=== PATIENT | female | born 1965 | race Caucasian/White ===

== ENCOUNTER 2018-09-24 13:18 | Emergency (ER) | payer MEDICAID ==
[2018-09-24] MEDS ORDERED: BABY ASPIRIN 81 MG CHEW PO ONE (13:29)
--- NOTE | 2018-09-24 13:36 | ERPHSYRPT ---
- History of Present Illness Time Seen by Provider: 09/24/18 13:31 Historian: patient Exam Limitations: no limitations Physician History: 53-year-old white female with history of mitral valve prolapse, seizures, diabetes mellitus type 2, high blood pressure Patient arrives with complaint of substernal chest pain sharp in character shooting, lasting less than a minute, but intermittent associated with shortness of breath nausea and dizziness. Patient states she woke up with the above complaints. Past medical history includes mitral valve prolapse, seizures, diabetes, hypercholesterolemia, high blood pressure. Past surgical history includes right forearm and right knee surgery. Social history patient denies tobacco alcohol or illicit drug use Timing/Duration: today (9 AM today) Activities at Onset: sleep Quality: sharpness (sharp shooting pains lasting less than a minute but intermittent) Location: substernal Chest Pain Radiation: no radiation Severity of Pain-Max: moderate Severity of Pain-Current: mild Modifying Factors: Improves With: nothing Associated Symptoms: nausea, palpitations, shortness of breath, No vomiting, No heartburn, No abdominal pain, No cough, No hurts to breathe, No diaphoresis, No chills, No fever, No fatigue, No weakness, No swelling/lump in chest, No syncope , No rash, No headache, No dizziness, No edema, No back pain Prior Chest Pain/Cardiac Workup: no prior chest pain Nitro Today/Relief: no nitro taken today Aspirin Treatment Today: 81 mg x 4, provided by ED Allergies/Adverse Reactions: codeine Allergy (Severe, Verified 09/24/18 13:32) itch levofloxacin Allergy (Verified 09/24/18 13:32) Swelling naproxen Allergy (Verified 09/24/18 13:32) Swelling Home Medications: Atorvastatin Calcium [Lipitor 20MG Tablet] 20 mg PO BID 09/24/18 [History] Levetiracetam [Keppra] 1,000 mg PO BID 09/24/18 [History] Metoprolol Succinate 25 mg PO DAILY 09/24/18 [History] Phenytoin Sod Extended 100 mg* [Dilantin 100 MG] 100 mg PO BID 09/24/18 [ History] - Review of Systems Constitutional: No Fever, No Chills Eyes: No Symptoms Ears, Nose, & Throat: No Symptoms Respiratory: Dyspnea, No Cough Cardiac: Chest Pain, No Edema, No Palpitations, No Syncope, No Orthopnea Abdominal/Gastrointestinal: No Abdominal Pain, No Nausea, No Vomiting, No Diarrhea Genitourinary Symptoms: No Dysuria Musculoskeletal: No Symptoms, No Back Pain, No Neck Pain Skin: No Rash Neurological: No Dizziness, No Focal Weakness, No Sensory Changes Psychological: No Symptoms Endocrine: No Symptoms All Other Systems: Reviewed and Negative - Past Medical History Pertinent Past Medical History: Yes Neurological History: Seizures Cardiac History: High Cholesterol, Hypertension, Other (mitral valve prolapse) Endocrine Medical History: Diabetes Type II - Past Surgical History Past Surgical History: Yes Other Surgical History: right forearm surgery, right knee surgery - Nursing Vital Signs Nursing Vital Signs: Initial Vital Signs Temperature 98.6 F 09/24/18 13:22 Pulse Rate 86 09/24/18 13:22 Respiratory Rate 16 09/24/18 13:22 Blood Pressure 170/101 09/24/18 13:22 O2 Sat by Pulse Oximetry 100 09/24/18 13:22 Pain Scale Pain Intensity 4 - Physical Exam General Appearance: mild distress, alert, anxiety Eye Exam: PERRL/EOMI, eyes nml inspection Ears, Nose, Throat Exam: normal ENT inspection, moist mucous membranes Neck Exam: normal inspection (Lanoxin she says she), non-tender, supple, full range of motion Respiratory Exam: normal breath sounds, lungs clear, No respiratory distress Cardiovascular Exam: regular rate/rhythm, normal heart sounds, capillary refill <2 sec Gastrointestinal/Abdomen Exam: soft, No tenderness, No mass Back Exam: normal inspection, No CVA tenderness, No vertebral tenderness Extremity Exam: normal inspection, normal range of motion Neurologic Exam: alert, oriented x 3, cooperative, cvicu rn II-XII nml as tested, normal mood/affect, sensation nml, No motor deficits Skin Exam: normal color, warm, dry SpO2 Interpretation: normal (97%), borderline oxygenation - Course Nursing assessment & vital signs reviewed: Yes EKG Interpreted by Me: RATE (95 bpm), Sinus Rhythm, Other (EKG: Sinus rhythm days for a little axis, no acute ST or T wave changes, normal EKG) - Radiology Exams Chest X-ray Interpretation: Discussed w/ radiologist (chest x-ray: Normal heart lungs , and bony thorax), Teleradiologist Report ( or I) - CT Exams Chest CT Interpretation: Discussed w/radiologist (CTA chest: Impression: Negative pulmonary embolism. No acute cardiopulmonary abnormalities.) Ordered Tests: Active Orders 24 hr Category Date Time Status Cab Worker STAT Care 09/24/18 13:29 Active EKG-ER Only STAT Care 09/24/18 13:29 Active IV Insertion STAT Care 09/24/18 13:29 Active Pulse Oximetry (ED) STAT Care 09/24/18 13:29 Active CHEST 1 VIEW (PORTABLE) Stat Exams 09/24/18 13:29 Completed CHEST WITH CONTRAST [CT] Stat Exams 09/24/18 14:46 Completed AMYLASE Stat Lab 09/24/18 13:39 Completed CBC W DIFF Stat Lab 09/24/18 13:39 Completed CMP Stat Lab 09/24/18 13:39 Completed D-DIMER QUANTITATION Stat Lab 09/24/18 13:39 Completed HCG QUALITATIVE,SERUM Stat Lab 09/24/18 13:39 Completed LIPASE Stat Lab 09/24/18 13:39 Completed PROTIME WITH INR Stat Lab 09/24/18 13:39 Completed PTT Stat Lab 09/24/18 13:39 Completed TROPONIN Q3H Lab 09/24/18 13:39 Completed TROPONIN Q3H Lab 09/24/18 16:30 Completed TROPONIN Q3H Lab 09/24/18 19:30 Ordered TROPONIN Q3H Lab 09/24/18 22:30 Ordered TROPONIN Q3H Lab 09/25/18 01:30 Ordered Medication Summary Discontinued Medications Generic Name Dose Route Start Last Admin Trade Name Freq PRN Reason Stop Dose Admin Aspirin 324 mg 09/24/18 13:29 09/24/18 13:38 Baby Aspirin 81 Mg Chew PO 09/24/18 13:30 324 mg STAT ONE Administration Aspirin Confirm 09/24/18 13:38 Baby Aspirin 81 Mg Chew Administered 09/24/18 13:39 Dose 324 mg .ROUTE .STK-MED ONE Morphine Sulfate 2 mg 09/24/18 14:44 09/24/18 15:00 Morphine Sulfate 2 Mg Inj IV 09/24/18 14:45 2 mg STAT ONE Administration Morphine Sulfate Confirm 09/24/18 14:54 Morphine Sulfate 2 Mg Inj Administered 09/24/18 14:55 Dose 2 mg .ROUTE .STK-MED ONE Ondansetron HCl 4 mg 09/24/18 14:44 09/24/18 15:00 Zofran 4 Mg/2 Ml Vial IV 09/24/18 14:45 4 mg STAT ONE Administration Ondansetron HCl Confirm 09/24/18 14:54 Zofran 4 Mg/2 Ml Vial Administered 09/24/18 14:55 Dose 4 mg .ROUTE .STK-MED ONE Lab/Rad Data: Laboratory Result Diagrams 09/24/18 13:39 09/24/18 13:39 Laboratory Results 09/24/18 09/24/18 09/24/18 Range/Units 16:30 13:39 13:39 WBC (4.0-10.5) K/mm3 RBC (4.1-5.4) M/mm3 Hgb (12.0-16.0) gm/dl Hct (35-47) % MCV (78-100) fl MCH (26-32) pg MCHC (32-36) g/dl RDW (11.5-14.0) % Plt Count (150-450) K/mm3 MPV (6-9.5) fl Gran % (36.0-66.0) % Eos # (Auto) (0-0.5) Absolute Lymphs (auto) (1.0-4.6) Absolute Monos (auto) (0.0-1.3) Lymphocytes % (24.0-44.0) % Monocytes % (0.0-12.0) % Eosinophils % (0.00-5.0) % Basophils % (0.0-0.4) % Absolute Granulocytes (1.4-6.9) Basophils # (0-0.4) PT (9.95-12.35) SECONDS INR (0.8-3.0) APTT (25.3-37.0) SECONDS D-Dimer (215-500) ng/mL Sodium (137-145) mmol/L Potassium (3.5-5.1) mmol/L Chloride (98-107) mmol/L Carbon Dioxide (22-30) mmol/L Anion Gap (5-15) MEQ/L BUN (7-17) mg/dL Creatinine (0.52-1.04) mg/dL Estimated GFR ML/MIN Glucose (74-106) mg/dL Calcium (8.4-10.2) mg/dL Total Bilirubin (0.2-1.3) mg/dL AST (14-36) U/L ALT (0-35) U/L Alkaline Phosphatase (38-126) U/L Troponin I < 0.012 < 0.012 (0.000-0.034) ng/mL Serum Total Protein (6.3-8.2) g/dL Albumin (3.5-5.0) g/dL Amylase (30-110) U/L Lipase (23-300) U/L Serum , Qual NEGATIVE (Negative) 09/24/18 09/24/18 09/24/18 Range/Units 13:39 13:39 13:39 WBC 6.8 (4.0-10.5) K/mm3 RBC 4.77 (4.1-5.4) M/mm3 Hgb 11.5 L (12.0-16.0) gm/dl Hct 37.2 (35-47) % MCV 78.0 (78-100) fl MCH 24.1 L (26-32) pg MCHC 30.9 L (32-36) g/dl RDW 16.8 H (11.5-14.0) % Plt Count 339 (150-450) K/mm3 MPV 9.5 (6-9.5) fl Gran % 53.7 (36.0-66.0) % Eos # (Auto) 0.20 (0-0.5) Absolute Lymphs (auto) 1.90 (1.0-4.6) Absolute Monos (auto) 1.03 (0.0-1.3) Lymphocytes % 27.9 (24.0-44.0) % Monocytes % 15.1 H (0.0-12.0) % Eosinophils % 2.9 (0.00-5.0) % Basophils % 0.4 (0.0-0.4) % Absolute Granulocytes 3.65 (1.4-6.9) Basophils # 0.03 (0-0.4) PT 11.0 (9.95-12.35) SECONDS INR 0.95 (0.8-3.0) APTT 25.8 (25.3-37.0) SECONDS D-Dimer 531 H* (215-500) ng/mL Sodium 139 (137-145) mmol/L Potassium 4.2 (3.5-5.1) mmol/L Chloride 103 (98-107) mmol/L Carbon Dioxide 25 (22-30) mmol/L Anion Gap 15.3 H (5-15) MEQ/L BUN 10 (7-17) mg/dL Creatinine 0.60 (0.52-1.04) mg/dL Estimated GFR > 60.0 ML/MIN Glucose 114 H (74-106) mg/dL Calcium 10.3 H (8.4-10.2) mg/dL Total Bilirubin 0.40 (0.2-1.3) mg/dL AST 20 (14-36) U/L ALT 14 (0-35) U/L Alkaline Phosphatase 66 (38-126) U/L Troponin I (0.000-0.034) ng/mL Serum Total Protein 8.2 (6.3-8.2) g/dL Albumin 4.5 (3.5-5.0) g/dL Amylase 94 (30-110) U/L Lipase 123 (23-300) U/L Serum , Qual (Negative) - Progress Progress: improved Air Movement: fair Progress Note: 09/24/18 17:17 Patient now feeling better pain free Patient's chest x-ray normal heart lungs and bony thorax . Patient's EKG sinus rhythm 95 beats per minute normal axis no acute ST or T wave changes normal EKG. CT chest obtained secondary to chest pain and elevated d-dimer: Negative pulmonary embolus no acute cardiopulmonary abnormalities Patient's troponins were negative x2 will discharge patient Impression chest pain noncardiac - Departure Departure Disposition: Home Clinical Impression: Non-cardiac chest pain Condition: Fair Critical Care Time: No Referrals: DOCTOR,NO FAMILY [Primary Care Provider] - Additional Instructions: Return home rest. Tylenol every 4 hours as needed for pain. Followup with your family (list). Return for acute distress or for severe symptoms.
[2018-09-24] MEDS ORDERED: BABY ASPIRIN 81 MG CHEW ONE (13:38)
[2018-09-24 13:43] LABS: BASOPHIL % 0.4 % (0.0-0.4); Basophil (Absolute #) 0.03 (0-0.4); Eosinophil % 2.9 % (0.00-5.0); Granulocyte Absolute (ANC) 3.65 (1.4-6.9); Granulocytes % 53.7 % (36.0-66.0); Hematocrit 37.2 % (35-47); Hemoglobin 11.5 gm/dl (12.0-16.0); Lymphocytes % 27.9 % (24.0-44.0); Mean Corpuscular Hemoglobin 24.1 pg (26-32); Mean Corpuscular Hgb Concent. 30.9 g/dl (32-36); Mean Platelet Volume 9.5 fl (6-9.5); Monocyte (Absolute #) 1.03 (0.0-1.3); Monocytes % 15.1 % (0.0-12.0); Platelet Count 339 K/mm3 (150-450); Red Blood Count 4.77 M/mm3 (4.1-5.4); Red Cell Distribution Width 16.8 % (11.5-14.0); White Blood Count 6.8 K/mm3 (4.0-10.5)
[2018-09-24 13:49] LABS: INR 0.95 (0.8-3.0)
[2018-09-24 13:52] LABS: PTT 25.8 SECONDS (25.3-37.0)
[2018-09-24 13:54] LABS: ALBUMIN 4.5 g/dL (3.5-5.0); ALKALINE PHOSPHATASE 66 U/L (38-126); AMYLASE 94 U/L (30-110); ANION GAP 15.3 MEQ/L (5-15); BLOOD UREA NITROGEN 10 mg/dL (7-17); CHLORIDE 103 mmol/L (98-107); Calcium 10.3 mg/dL (8.4-10.2); Carbon Dioxide 25 mmol/L (22-30); Glucose 114 mg/dL (74-106); LIPASE 123 U/L (23-300); Potassium 4.2 mmol/L (3.5-5.1); SGOT/AST 20 U/L (14-36); SGPT/ALT 14 U/L (0-35); SODIUM 139 mmol/L (137-145); Total Protein 8.2 g/dL (6.3-8.2)
--- NOTE | 2018-09-24 13:57 | XRAY ---
Indication: Chest pain. Comparison: None Portable chest demonstrates normal heart, lungs, and bony thorax.
[2018-09-24] MEDS ORDERED: MORPHINE SULFATE 2 MG INJ IV ONE (14:44)
[2018-09-24] MEDS ORDERED: Zofran 4 MG/2 ML VIAL IV ONE (14:44)
[2018-09-24] MEDS ORDERED: MORPHINE SULFATE 2 MG INJ ONE (14:54)
[2018-09-24] MEDS ORDERED: Zofran 4 MG/2 ML VIAL ONE (14:54)
--- NOTE | 2018-09-24 16:32 | XRAY ---
Indication: Chest pain, short of breath, dizziness, and nausea. Elevated d-dimer. Multiple contiguous axial images obtained through the chest using 80 cc Isovue-370 contrast and PE protocol. Comparison: None There is good opacification of the pulmonary arteries to include the lobar and segmental branches. No filling defect or pulmonary embolus. Heart is not enlarged. Aorta is normal in course and caliber. No pathologic mediastinal/hilar lymphadenopathy. Lungs demonstrate minimal bilateral dependent atelectasis and minimal medial right lower lobe peripheral fibrosis/scarring. No suspicious pulmonary mass, infiltrate, or effusion. Bony thorax intact with minimal degenerative changes throughout the spine. Limited upper abdomen including adrenal glands unremarkable. Impression: Negative pulmonary embolus. No acute cardiopulmonary abnormalities. CTDI 22.44
[2018-09-24 17:43] VITALS: BP 133/89; PULSE 89; O2SAT 97
== END 2018-09-24 17:42 | disposition home or self-care (01) ==
LOC: ED 13:18
DX: R07.89 Other chest pain (principal); E11.9 Type 2 diabetes mellitus without complications; I10 Essential (primary) hypertension; R56.9 Unspecified convulsions; E78.00 Pure hypercholesterolemia, unspecified; Z79.899 Other long term (current) drug therapy
CPT/HCPCS: 36000; 36415; 71045; 71260; 80053; 81025; 82150; 83690; 84484; 85025; 85379; 85610; 85730; 93005; 93041; 96374; 96375; 99284; J2270; J2405; A9270-GY

== ENCOUNTER 2018-11-12 13:40 | Emergency (ER) | payer MEDICAID ==
[2018-11-12 14:07] VITALS: PULSE 94; O2SAT 98
[2018-11-12] MEDS ORDERED: MOTRIN 400 MG ONE (14:37)
[2018-11-12] MEDS: MOTRIN 400 MG PO ONE ×2 (14:37→14:55)
--- NOTE | 2018-11-12 14:39 | ERPHSYRPT ---
- History of Present Illness Time Seen by Provider: 11/12/18 14:25 Source: patient Exam Limitations: no limitations Patient Subjective Stated Complaint: Pain in left foot and lower part of calf, pins and needles, went to Dr. Meyers 3 weeks ago and lab work was purnima for gout, sees Dr. Meyers on 11/22/2018 Triage Nursing Assessment: Wheeled in by wheelchair, hypertensive, unable to flex left foot due to pain, no heat in leg, pulses normal, rates pain 12/31, skin N/W/D, pain began yesterday Physician History: Pt started c/o pain in her left posterior, distal, lower leg, heel area since yesterday, denies swelling, any injury or other complaints, no chest pain, cough , SOB< fever, nausea. Method of Injury: unknown Occurred: yesterday Quality: constant, intermittent Severity of Pain-Max: moderate Severity of Pain-Current: moderate Lower Extremities Pain: heel: left Modifying Factors: Improves With: immobilization, movement Associated Symptoms: none Allergies/Adverse Reactions: codeine Allergy (Severe, Verified 11/12/18 15:10) itch levofloxacin Allergy (Verified 11/12/18 15:10) Swelling naproxen Allergy (Verified 11/12/18 15:10) Swelling Home Medications: Atorvastatin Calcium [Lipitor 20MG Tablet] 20 mg PO BID 09/24/18 [History] Levetiracetam [Keppra] 1,000 mg PO BID 09/24/18 [History] Metoprolol Succinate 25 mg PO DAILY 09/24/18 [History] Phenytoin Sod Extended 100 mg* [Dilantin 100 MG] 100 mg PO BID 09/24/18 [ History] Cyclobenzaprine HCl [Flexeril] 5 mg PO DAILY 11/12/18 [History] Gabapentin [Neurontin] 300 mg PO DAILY 11/12/18 [History] Levothyroxine Sodium 100 Mcg [Synthroid 100 Mcg] 1 tab PO DAILY 11/12/18 [ History] Hx Tetanus, Diphtheria Vaccination/Date Given: No Hx Influenza Vaccination/Date Given: No Hx Pneumococcal Vaccination/Date Given: No - Review of Systems Constitutional: No Symptoms Ears, Nose, & Throat: No Symptoms Respiratory: No Symptoms Cardiac: No Symptoms Abdominal/Gastrointestinal: No Symptoms Genitourinary Symptoms: No Symptoms Musculoskeletal: Other (left lower leg and heel pain, no swelling.) Skin: No Symptoms Neurological: No Symptoms All Other Systems: Reviewed and Negative - Past Medical History Pertinent Past Medical History: Yes Neurological History: Seizures ENT History: No Pertinent History Cardiac History: High Cholesterol, Hypertension, Other Respiratory History: No Pertinent History Endocrine Medical History: Diabetes Type II Musculoskeletal History: No Pertinent History GI Medical History: No Pertinent History History: No Pertinent History Psycho-Social History: Anxiety Female Reproductive Disorders: No Pertinent History - Past Surgical History Past Surgical History: Yes Other Surgical History: right forearm surgery, right knee surgery - Social History Smoking Status: Former smoker Exposure to second hand smoke: Yes Drug Use: none Patient Lives Alone: No - Female History Hx Now: No - Nursing Vital Signs Nursing Vital Signs: Initial Vital Signs Temperature 98.0 F 11/12/18 13:57 Pulse Rate 94 H 11/12/18 13:57 Blood Pressure 151/86 11/12/18 13:57 O2 Sat by Pulse Oximetry 98 11/12/18 13:57 Pain Scale Pain Intensity [] 9 Pain Intensity 9 - Physical Exam General Appearance: no apparent distress Eyes, Ears, Nose, Throat Exam: normal ENT inspection Neck Exam: normal inspection, non-tender Cardiovascular/Respiratory Exam: chest non-tender, normal breath sounds, regular rate/rhythm, heart sounds normal Gastrointestinal/Abdominal Exam: non-tender, soft, No no organomegaly, No tenderness Back Exam: normal inspection, No CVA tenderness, No vertebral tenderness Foot Exam: left foot: soft tissue tenderness (left proximal Achilles area tender , no dent, or discoloration, no edema, or other skin changes, painful dorsiflexion, normal distal circulation and sensation of the foot and toes.) Neuro/Tendon Exam: normal sensation, normal motor functions Mental Status Exam: alert, oriented x 3, cooperative Skin Exam: normal color, warm, dry, No rash, No petechiae, No diaphoresis SpO2 Interpretation: normal SpO2: 98 O2 Delivery: Room Air - Course Nursing assessment & vital signs reviewed: Yes - Radiology Exams Left Foot X-ray Interpretation: Reviewed by me, Other (small heel spur) Left Lower Leg X-ray Interpretation: Reviewed by me, Negative Ordered Tests: Active Orders 24 hr Category Date Time Status Crutches STAT Care 11/12/18 15:28 Ordered Splint STAT Care 11/12/18 15:27 Ordered FOOT (MINIMUM 3 VIEWS) Stat Exams 11/12/18 14:32 Completed LOWER LEG Stat Exams 11/12/18 14:33 Completed CBC W DIFF Stat Lab 11/12/18 14:50 Completed CMP Stat Lab 11/12/18 14:50 Completed D-DIMER QUANTITATION Stat Lab 11/12/18 14:50 Completed Medication Summary Discontinued Medications Generic Name Dose Route Start Last Admin Trade Name Fremarlyn PRN Reason Stop Dose Admin Ibuprofen 400 mg 11/12/18 14:33 11/12/18 14:55 Motrin 400 Mg PO 11/12/18 14:34 Not Given STAT ONE Ibuprofen Confirm 11/12/18 14:37 Motrin 400 Mg Administered 11/12/18 14:38 Dose 400 mg .ROUTE .STK-MED ONE Lab/Rad Data: Laboratory Result Diagrams 11/12/18 14:50 11/12/18 14:50 Laboratory Results 11/12/18 11/12/18 11/12/18 Range/Units 14:50 14:50 14:50 WBC 6.3 (4.0-10.5) K/mm3 RBC 4.67 (4.1-5.4) M/mm3 Hgb 11.8 L (12.0-16.0) gm/dl Hct 37.9 (35-47) % MCV 81.2 (78-100) fl MCH 25.2 L (26-32) pg MCHC 31.1 L (32-36) g/dl RDW 17.6 H (11.5-14.0) % Plt Count 294 (150-450) K/mm3 MPV 9.7 H (6-9.5) fl Gran % 61.2 (36.0-66.0) % Eos # (Auto) 0.30 (0-0.5) Absolute Lymphs (auto) 1.27 (1.0-4.6) Absolute Monos (auto) 0.85 (0.0-1.3) Lymphocytes % 20.2 L (24.0-44.0) % Monocytes % 13.5 H (0.0-12.0) % Eosinophils % 4.8 (0.00-5.0) % Basophils % 0.3 (0.0-0.4) % Absolute Granulocytes 3.84 (1.4-6.9) Basophils # 0.02 (0-0.4) D-Dimer 409 (215-500) ng/mL Sodium 140 (137-145) mmol/L Potassium 4.1 (3.5-5.1) mmol/L Chloride 106 (98-107) mmol/L Carbon Dioxide 25 (22-30) mmol/L Anion Gap 13.1 (5-15) MEQ/L BUN 13 (7-17) mg/dL Creatinine 0.86 (0.52-1.04) mg/dL Estimated GFR > 60.0 ML/MIN Glucose 124 H (74-106) mg/dL Calcium 9.4 (8.4-10.2) mg/dL Total Bilirubin 0.30 (0.2-1.3) mg/dL AST 19 (14-36) U/L ALT 17 (0-35) U/L Alkaline Phosphatase 67 (38-126) U/L Serum Total Protein 7.5 (6.3-8.2) g/dL Albumin 4.1 (3.5-5.0) g/dL - Progress Progress: improved Progress Note: 11/12/18 15:25 We reviewed her labs and X ray results, discussed with her, she was given Tylenol, and Postop shoe, discharged to rest with elevated leg x 2-3 days, apply ice or cold compresses to painful area, and follow up with her physician in 2-3 days. Counseled pt/family regarding: lab results, diagnosis, need for follow-up, rad results - Departure Departure Disposition: Home Clinical Impression: Achilles bursitis of left lower extremity Condition: Stable Critical Care Time: No Referrals: BHAKTI MEYERS DO [Primary Care Provider] - Instructions: Bursitis (DC), Heel Spurs (DC) Additional Instructions: Rest x 2-3 days with elevated leg, apply ice or cold compresses to painful area , and follow up with your physician in 2-3 days, return if severe pain, swelling , discoloration, coldness of the toes! Forms: Work/School Release Form Prescriptions: Tramadol HCl 50 mg [Ultram 50 mg] 50 mg PO Q6H PRN #10 tablet PRN Reason: Pain
[2018-11-12 14:59] LABS: BASOPHIL % 0.3 % (0.0-0.4); Basophil (Absolute #) 0.02 (0-0.4); Eosinophil % 4.8 % (0.00-5.0); Granulocyte Absolute (ANC) 3.84 (1.4-6.9); Granulocytes % 61.2 % (36.0-66.0); Hematocrit 37.9 % (35-47); Hemoglobin 11.8 gm/dl (12.0-16.0); Lymphocyte (Absolute #) 1.27 (1.0-4.6); Lymphocytes % 20.2 % (24.0-44.0); Mean Cell Volume 81.2 fl (78-100); Mean Corpuscular Hgb Concent. 31.1 g/dl (32-36); Mean Platelet Volume 9.7 fl (6-9.5); Monocyte (Absolute #) 0.85 (0.0-1.3); Monocytes % 13.5 % (0.0-12.0); Platelet Count 294 K/mm3 (150-450); Red Blood Count 4.67 M/mm3 (4.1-5.4); Red Cell Distribution Width 17.6 % (11.5-14.0); White Blood Count 6.3 K/mm3 (4.0-10.5)
--- NOTE | 2018-11-12 15:03 | XRAY ---
Exam: 2 views of the left lower leg from 11/12/2018. Indication: 53-year-old female with diabetic neuropathy, left ankle and foot reveal oblique being stuck with pins and needles. Findings: 2 AP images and a lateral image of the left lower leg were obtained. I see no acute fracture or other focal bone lesion. Both the left ankle mortise and left knee joint appear unremarkable. The soft tissues of the left lower leg appear unremarkable. Impression: 1. No significant bone or soft tissue abnormality is seen within the right lower leg.
--- NOTE | 2018-11-12 15:04 | XRAY ---
Exam: 3 views of the left foot from 11/12/2018. Comparison: None. Indication: 53-year-old female with diabetic neuropathy, left foot and ankle feels like being stuck with "pins and needles". Findings: AP, oblique, and lateral radiographs of the left foot were obtained. I see no acute fracture or dislocation. No periosteal reaction or callus is seen. The tarsals align correctly with the metatarsals on the AP and oblique images. Mild posterior left calcaneal spurring/enthesophyte is seen. No radiopaque soft tissue foreign body is seen. The remainder of the joint spaces appears unremarkable. Impression: 1. No significant bone or joint abnormality of the left foot is seen. 2. Mild posterior calcaneal spur/enthesophyte is seen on the lateral image.
[2018-11-12 15:13] LABS: ALBUMIN 4.1 g/dL (3.5-5.0); ALKALINE PHOSPHATASE 67 U/L (38-126); ANION GAP 13.1 MEQ/L (5-15); BLOOD UREA NITROGEN 13 mg/dL (7-17); CHLORIDE 106 mmol/L (98-107); Calcium 9.4 mg/dL (8.4-10.2); Carbon Dioxide 25 mmol/L (22-30); Creatinine 1 0.86 mg/dL (0.52-1.04); Glucose 124 mg/dL (74-106); Potassium 4.1 mmol/L (3.5-5.1); SGOT/AST 19 U/L (14-36); SGPT/ALT 17 U/L (0-35); SODIUM 140 mmol/L (137-145); Total Protein 7.5 g/dL (6.3-8.2)
[2018-11-12 15:14] VITALS: BP 134/92
[2018-11-12 15:18] LABS: Mean Corpuscular Hemoglobin 25.2 pg (26-32)
== END 2018-11-12 16:00 | disposition home or self-care (01) ==
LOC: ED 13:40
DX: M76.62 Achilles tendinitis, left leg (principal)
CPT/HCPCS: 36415; 73590; 73630; 80053; 85025; 85379; 99284; A9270-GY

== ENCOUNTER 2019-07-14 14:09 | Emergency (ER) | payer MEDICAID ==
[2019-07-14 15:27] LABS: Absolute Neutrophil Ct (ANC) 3.59 (1.4-6.9); BASOPHIL % 0.5 % (0.0-0.4); Basophil (Absolute #) 0.03 (0-0.4); Eosinophil % 4.5 % (0.00-5.0); Eosinophil (Absolute #) 0.28 (0-0.5); Hematocrit 39.4 % (35-47); Hemoglobin 12.5 gm/dl (12.0-16.0); Lymphocyte (Absolute #) 1.63 (1.0-4.6); Mean Cell Volume 83.8 fl (78-100); Mean Corpuscular Hemoglobin 26.6 pg (26-32); Mean Corpuscular Hgb Concent. 31.7 g/dl (32-36); Mean Platelet Volume 9.7 fl (7.5-11.0); Monocyte (Absolute #) 0.75 (0.0-1.3); Monocytes % 11.9 % (0.0-12.0); Neutrophil % 57.1 % (36.0-66.0); Platelet Count 297 K/mm3 (150-450); Red Cell Distribution Width 15.8 % (11.5-14.0); White Blood Count 6.3 K/mm3 (4.0-10.5)
[2019-07-14] MEDS ORDERED: Sodium Chloride 0.9% 1000 ML 1,000 ML ONE (15:28)
[2019-07-14] MEDS ORDERED: Sodium Chloride 0.9% 1000 ML 1,000 ML IV SCH (15:30)
[2019-07-14 15:38] LABS: ALBUMIN 4.4 g/dL (3.5-5.0); ALKALINE PHOSPHATASE 74 U/L (38-126); ANION GAP 12.9 MEQ/L (5-15); BLOOD UREA NITROGEN 8 mg/dL (7-17); CHLORIDE 106 mmol/L (98-107); Calcium 9.8 mg/dL (8.4-10.2); Carbon Dioxide 24 mmol/L (22-30); Creatinine 1 0.53 mg/dL (0.52-1.04); Glucose 137 mg/dL (74-106); Potassium 3.8 mmol/L (3.5-5.1); SGOT/AST 20 U/L (14-36); SGPT/ALT 13 U/L (0-35); SODIUM 139 mmol/L (137-145); Total Protein 8.1 g/dL (6.3-8.2)
[2019-07-14 15:41] LABS: Appearance CLEAR (CLEAR); Bacteria PACKED /HPF (NEGATIVE); Bilirubin NEGATIVE (NEGATIVE); Blood NEGATIVE Ery/ul (0-5); Epithelial Cells RARE /HPF (FEW); Glucose NEGATIVE (NEGATIVE); Ketones NEGATIVE (NEGATIVE); Leukocyte Esterase NEGATIVE (NEGATIVE); Mucus SLIGHT /HPF (NEGATIVE); Nitrite NEGATIVE (NEGATIVE); Protein,Urine Dip NEGATIVE (Negative); RBC 0-2 /HPF (0-2); Specific Gravity 1.004 (1.005-1.025); Urobilinogen NEGATIVE mg/dL (0-1)
--- NOTE | 2019-07-14 16:16 | XRAY ---
Indication: Fever, cough, short of breath. Comparison: September 24, 2018. Portable chest again demonstrates normal heart, lungs, and bony thorax.
[2019-07-14 16:37] LABS: INFLUENZA A NEGATIVE (NEGATIVE); INFLUENZA B NEGATIVE (NEGATIVE); RESPIRATORY SYNCTIAL VIRUS NEGATIVE (Negative)
[2019-07-14 19:01] VITALS: O2SAT 97
--- NOTE | 2019-07-14 19:13 | ERPHSYRPT ---
- History of Present Illness Time Seen by Provider: 07/14/19 15:20 Patient Subjective Stated Complaint: pt reports last evening she began feeling ill. states this morning she started with a fever, body aches, non productive cough, sore throat, and dizziness. pt reports she feels short of breath when she is up moving around.pt reports she also feels pressure to the center of the chest. Triage Nursing Assessment: pt is aox3, pupils perrl, afebrile, resps easy and non labored, pt lung sounds are clear throughout all xie, radial pulses strong and equal, cap refill < 3 seconds, pt appears pale, skin warm dry. pt short of breath after ambulating short distance to treatment room. Physician History: Is a 53-year-old white female who presents with a cough. She started with a sore throat yesterday has had some dizziness the cough is nonproductive. 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 Her fever was 99.8 and was 99.1 at home mitral valve problems diabetes hypertension high cholesterol neuropathy. Timing/Duration: yesterday Cough Quality/Degree: dry cough Possible Cause: no prior episodes Modifying Factors: Improves With: nothing Associated Symptoms: fever, cough, dizziness, sore throat Allergies/Adverse Reactions: codeine Allergy (Severe, Verified 07/14/19 15:14) itch levofloxacin Allergy (Verified 07/14/19 15:14) Swelling naproxen Allergy (Verified 07/14/19 15:14) Swelling Home Medications: Levetiracetam [Keppra] 1,000 mg PO BID 09/24/18 [History] Phenytoin Sod Extended 100 mg* [Dilantin 100 MG] 100 mg PO BID 09/24/18 [ History] Gabapentin [Neurontin] 300 mg PO DAILY 11/12/18 [History] Liraglutide [Victoza 2-Vincent] 1.2 mg SQ DAILY 07/14/19 [History] Hx Tetanus, Diphtheria Vaccination/Date Given: Yes Hx Influenza Vaccination/Date Given: No Hx Pneumococcal Vaccination/Date Given: No Immunizations Up to Date: Yes Travel Risk - International Travel Have you traveled outside of the country in past 3 weeks: No Have you or anyone close to you been diagnosed with or: No Do your reside in a community with a known COVID-19 case?: No - Coronavirus Screening Has patient experienced Coronavirus symptoms: No Date of fever onset:: 07/14/19 Date of respiratory symptoms onset:: 07/14/19 - Review of Systems Constitutional: Fever, No Chills Eyes: No Symptoms Ears, Nose, & Throat: No Symptoms Respiratory: Cough, No Dyspnea Cardiac: No Chest Pain, No Edema, No Syncope Abdominal/Gastrointestinal: No Abdominal Pain, No Nausea, No Vomiting, No Diarrhea Genitourinary Symptoms: No Dysuria Musculoskeletal: No Back Pain, No Neck Pain Skin: No Rash Neurological: No Dizziness, No Focal Weakness, No Sensory Changes Psychological: No Symptoms Endocrine: No Symptoms All Other Systems: Reviewed and Negative - Past Medical History Pertinent Past Medical History: Yes Neurological History: Seizures ENT History: No Pertinent History Cardiac History: High Cholesterol, Hypertension, Other Respiratory History: No Pertinent History Endocrine Medical History: Diabetes Type II Musculoskeletal History: No Pertinent History GI Medical History: No Pertinent History History: No Pertinent History Psycho-Social History: Anxiety Female Reproductive Disorders: No Pertinent History - Past Surgical History Past Surgical History: Yes Other Surgical History: right forearm surgery, right knee surgery - Social History Smoking Status: Former smoker Exposure to second hand smoke: Yes Drug Use: none Patient Lives Alone: No - Nursing Vital Signs Nursing Vital Signs: Initial Vital Signs Temperature 99.8 F 07/14/19 15:00 Pulse Rate 81 07/14/19 15:00 Respiratory Rate 20 07/14/19 15:00 Blood Pressure 161/96 07/14/19 15:00 O2 Sat by Pulse Oximetry 98 07/14/19 15:00 Pain Scale Pain Intensity 2 - Physical Exam General Appearance: moderate distress, alert Eye Exam: PERRL/EOMI, eyes nml inspection Ears, Nose, Throat Exam: normal ENT inspection, TMs normal, pharynx normal, moist mucous membranes Neck Exam: normal inspection, non-tender, supple, full range of motion Respiratory Exam: normal breath sounds, lungs clear, No respiratory distress Cardiovascular Exam: regular rate/rhythm, normal heart sounds Gastrointestinal/Abdomen Exam: soft, No tenderness Back Exam: normal inspection, No CVA tenderness, No vertebral tenderness Extremity Exam: normal inspection, normal range of motion Neurologic Exam: alert, oriented x 3, cooperative, normal mood/affect, sensation nml, No motor deficits Skin Exam: normal color, warm, dry, No rash Lymphatic Exam: No adenopathy SpO2: 97 - Course Nursing assessment & vital signs reviewed: Yes - Radiology Exams Chest X-ray Interpretation: No Pneumonia - CT Exams Chest CT Interpretation: Negative Ordered Tests: Active Orders 24 hr Category Date Time Status EKG-ER Only STAT Care 07/14/19 15:11 Active CHEST 1 VIEW (PORTABLE) Stat Exams 07/14/19 15:13 Completed CHEST WITH CONTRAST [CT] Stat Exams 07/14/19 16:49 Taken BLOOD CULTURE Stat Lab 07/14/19 15:43 Received CBC W DIFF Stat Lab 07/14/19 15:15 Completed CMP Stat Lab 07/14/19 15:11 Completed CULTURE,URINE Stat Lab 07/14/19 15:15 Received D-DIMER QUANTITATIVE Stat Lab 07/14/19 15:15 Completed LDH-LACTATE DEHYDROGENASE Stat Lab 07/14/19 15:15 Completed Lactic Acid Stat Lab 07/14/19 15:15 Completed Lactic Acid Stat Lab 07/14/19 18:22 Completed UA W/RFX UR CULTURE Stat Lab 07/14/19 15:15 Completed Medication Summary Generic Name Dose Route Start Last Admin Trade Name Freq PRN Reason Stop Dose Admin Sodium Chloride 1,000 mls @ 50 mls/hr 07/14/19 15:30 07/14/19 15:35 Sodium Chloride 0.9% 1000 Ml IV 08/13/19 15:29 50 mls/hr .Q20H TODD Administration Lab/Rad Data: Laboratory Result Diagrams 07/14/19 15:15 07/14/19 15:11 Laboratory Results 07/14/19 07/14/19 07/14/19 Range/Units 18:22 15:45 15:15 WBC (4.0-10.5) K/mm3 RBC (4.1-5.4) M/mm3 Hgb (12.0-16.0) gm/dl Hct (35-47) % MCV (78-100) fl MCH (26-32) pg MCHC (32-36) g/dl RDW (11.5-14.0) % Plt Count (150-450) K/mm3 MPV (7.5-11.0) fl Gran % (36.0-66.0) % Eos # (Auto) (0-0.5) Absolute Lymphs (auto) (1.0-4.6) Absolute Monos (auto) (0.0-1.3) Lymphocytes % (24.0-44.0) % Monocytes % (0.0-12.0) % Eosinophils % (0.00-5.0) % Basophils % (0.0-0.4) % Absolute Granulocytes (1.4-6.9) Basophils # (0-0.4) D-Dimer (215-500) ng/mL Sodium (137-145) mmol/L Potassium (3.5-5.1) mmol/L Chloride (98-107) mmol/L Carbon Dioxide (22-30) mmol/L Anion Gap (5-15) MEQ/L BUN (7-17) mg/dL Creatinine (0.52-1.04) mg/dL Estimated GFR ML/MIN Glucose (74-106) mg/dL Lactic Acid 1.0 (0.4-2.0) Calcium (8.4-10.2) mg/dL Total Bilirubin (0.2-1.3) mg/dL AST (14-36) U/L ALT (0-35) U/L Alkaline Phosphatase (38-126) U/L Lactate Dehydrogenase (120-246) U/L Serum Total Protein (6.3-8.2) g/dL Albumin (3.5-5.0) g/dL Urine Color STRAW (YELLOW) Urine Appearance CLEAR (CLEAR) Urine pH 8.0 (5-6) Ur Specific Moran 1.004 (1.005-1.025) Urine Protein NEGATIVE (Negative) Urine Ketones NEGATIVE (NEGATIVE) Urine Blood NEGATIVE (0-5) Callum/ul Urine Nitrite NEGATIVE (NEGATIVE) Urine Bilirubin NEGATIVE (NEGATIVE) Urine Urobilinogen NEGATIVE (0-1) mg/dL Ur Leukocyte Esterase NEGATIVE (NEGATIVE) Urine WBC (Auto) 6-10 (0-5) /HPF Urine RBC (Auto) 0-2 (0-2) /HPF U Epithel Cells (Auto) RARE (FEW) /HPF Urine Bacteria (Auto) PACKED (NEGATIVE) /HPF Urine Mucus (Auto) SLIGHT (NEGATIVE) /HPF Urine Culture Reflexed YES (NO) Urine Glucose NEGATIVE (NEGATIVE) mg/dL Influenza Type A Ag NEGATIVE (NEGATIVE) Influenza Type B Ag NEGATIVE (NEGATIVE) RSV (PCR) NEGATIVE (Negative) Group A Strep Antibody NEGATIVE (NEGATIVE) 07/14/19 07/14/19 07/14/19 Range/Units 15:15 15:15 15:15 WBC (4.0-10.5) K/mm3 RBC (4.1-5.4) M/mm3 Hgb (12.0-16.0) gm/dl Hct (35-47) % MCV (78-100) fl MCH (26-32) pg MCHC (32-36) g/dl RDW (11.5-14.0) % Plt Count (150-450) K/mm3 MPV (7.5-11.0) fl Gran % (36.0-66.0) % Eos # (Auto) (0-0.5) Absolute Lymphs (auto) (1.0-4.6) Absolute Monos (auto) (0.0-1.3) Lymphocytes % (24.0-44.0) % Monocytes % (0.0-12.0) % Eosinophils % (0.00-5.0) % Basophils % (0.0-0.4) % Absolute Granulocytes (1.4-6.9) Basophils # (0-0.4) D-Dimer 512 H* (215-500) ng/mL Sodium (137-145) mmol/L Potassium (3.5-5.1) mmol/L Chloride (98-107) mmol/L Carbon Dioxide (22-30) mmol/L Anion Gap (5-15) MEQ/L BUN (7-17) mg/dL Creatinine (0.52-1.04) mg/dL Estimated GFR ML/MIN Glucose (74-106) mg/dL Lactic Acid 2.3 H (0.4-2.0) Calcium (8.4-10.2) mg/dL Total Bilirubin (0.2-1.3) mg/dL AST (14-36) U/L ALT (0-35) U/L Alkaline Phosphatase (38-126) U/L Lactate Dehydrogenase 229 (120-246) U/L Serum Total Protein (6.3-8.2) g/dL Albumin (3.5-5.0) g/dL Urine Color (YELLOW) Urine Appearance (CLEAR) Urine pH (5-6) Ur Specific Moran (1.005-1.025) Urine Protein (Negative) Urine Ketones (NEGATIVE) Urine Blood (0-5) Callum/ul Urine Nitrite (NEGATIVE) Urine Bilirubin (NEGATIVE) Urine Urobilinogen (0-1) mg/dL Ur Leukocyte Esterase (NEGATIVE) Urine WBC (Auto) (0-5) /HPF Urine RBC (Auto) (0-2) /HPF U Epithel Cells (Auto) (FEW) /HPF Urine Bacteria (Auto) (NEGATIVE) /HPF Urine Mucus (Auto) (NEGATIVE) /HPF Urine Culture Reflexed (NO) Urine Glucose (NEGATIVE) mg/dL Influenza Type A Ag (NEGATIVE) Influenza Type B Ag (NEGATIVE) RSV (PCR) (Negative) Group A Strep Antibody (NEGATIVE) 07/14/19 07/14/19 Range/Units 15:15 15:11 WBC 6.3 (4.0-10.5) K/mm3 RBC 4.70 (4.1-5.4) M/mm3 Hgb 12.5 (12.0-16.0) gm/dl Hct 39.4 (35-47) % MCV 83.8 (78-100) fl MCH 26.6 (26-32) pg MCHC 31.7 L (32-36) g/dl RDW 15.8 H (11.5-14.0) % Plt Count 297 (150-450) K/mm3 MPV 9.7 (7.5-11.0) fl Gran % 57.1 (36.0-66.0) % Eos # (Auto) 0.28 (0-0.5) Absolute Lymphs (auto) 1.63 (1.0-4.6) Absolute Monos (auto) 0.75 (0.0-1.3) Lymphocytes % 26.0 (24.0-44.0) % Monocytes % 11.9 (0.0-12.0) % Eosinophils % 4.5 (0.00-5.0) % Basophils % 0.5 (0.0-0.4) % Absolute Granulocytes 3.59 (1.4-6.9) Basophils # 0.03 (0-0.4) D-Dimer (215-500) ng/mL Sodium 139 (137-145) mmol/L Potassium 3.8 (3.5-5.1) mmol/L Chloride 106 (98-107) mmol/L Carbon Dioxide 24 (22-30) mmol/L Anion Gap 12.9 (5-15) MEQ/L BUN 8 (7-17) mg/dL Creatinine 0.53 (0.52-1.04) mg/dL Estimated GFR > 60.0 ML/MIN Glucose 137 H (74-106) mg/dL Lactic Acid (0.4-2.0) Calcium 9.8 (8.4-10.2) mg/dL Total Bilirubin 0.50 (0.2-1.3) mg/dL AST 20 (14-36) U/L ALT 13 (0-35) U/L Alkaline Phosphatase 74 (38-126) U/L Lactate Dehydrogenase (120-246) U/L Serum Total Protein 8.1 (6.3-8.2) g/dL Albumin 4.4 (3.5-5.0) g/dL Urine Color (YELLOW) Urine Appearance (CLEAR) Urine pH (5-6) Ur Specific Moran (1.005-1.025) Urine Protein (Negative) Urine Ketones (NEGATIVE) Urine Blood (0-5) Callum/ul Urine Nitrite (NEGATIVE) Urine Bilirubin (NEGATIVE) Urine Urobilinogen (0-1) mg/dL Ur Leukocyte Esterase (NEGATIVE) Urine WBC (Auto) (0-5) /HPF Urine RBC (Auto) (0-2) /HPF U Epithel Cells (Auto) (FEW) /HPF Urine Bacteria (Auto) (NEGATIVE) /HPF Urine Mucus (Auto) (NEGATIVE) /HPF Urine Culture Reflexed (NO) Urine Glucose (NEGATIVE) mg/dL Influenza Type A Ag (NEGATIVE) Influenza Type B Ag (NEGATIVE) RSV (PCR) (Negative) Group A Strep Antibody (NEGATIVE) - Progress Progress: unchanged Air Movement: good Blood Culture(s) Obtained: No Antibiotics given: No - Departure Departure Disposition: Home Clinical Impression: Bronchitis, Urinary tract infection Condition: Stable Critical Care Time: No Referrals: BHAKTI AYALA DO [Primary Care Provider] - Instructions: Cough, Adult (DC), Urinary Tract Infections in Adults Prescriptions: Cefdinir [Omnicef 300 mg] 300 mg PO BID 10 Days #20 capsule
[2019-07-14 19:47] VITALS: BP 153/91; PULSE 73
--- NOTE | 2019-07-15 08:38 | XRAY ---
Indication: Fever, cough, short of breath, and elevated d-dimer. Multiple contiguous axial images obtained through the chest using 80 cc Isovue 370 contrast and PE protocol. Comparison: September 24, 2018. There is satisfactory opacification of the pulmonary arteries to include the lobar and segmental branches. No filling defect or pulmonary embolus. Heart is not enlarged. Aorta is normal in course and caliber. No pathologic mediastinal/hilar lymphadenopathy. Lungs again demonstrates minimal bilateral dependent atelectasis and minimal right lower lobe fibrosis/scarring. No suspicious pulmonary mass, infiltrate, or effusion. Bony thorax intact again with mild degenerative changes throughout the spine. Limited upper abdomen demonstrates stable incompletely visualized 1 cm right mid renal cyst. Impression: Continued negative for pulmonary embolus. No new/acute cardiopulmonary abnormalities. Stable incidental right renal cyst.
== END 2019-07-14 19:47 | disposition home or self-care (01) ==
LOC: ED 14:09
DX: J40 Bronchitis, not specified as acute or chronic (principal); N39.0 Urinary tract infection, site not specified
CPT/HCPCS: 36415; 71045; 71260; 80053; 81001; 83605; 83615; 85025; 85379; 87040; 87086; 87631; 87651; 93005; 96360; 96361; 99284

== ENCOUNTER 2020-01-16 05:43 | Day surgery (SDC) | payer OTHER ==
[~2020-01-16 05:43] MED LIST: DIPRIVAN 200 MG/20 ML IV ONE
[2020-01-16] MEDS ORDERED: Lactated Ringers 1,000 ML IV SCH (06:30)
[2020-01-16 06:59] VITALS: O2SAT 96
--- NOTE | 2020-01-16 08:23 | OP ---
SURGERY DATE/TIME: 01/16/2020 0727 PREOPERATIVE DIAGNOSIS: Screening exam. POSTOPERATIVE DIAGNOSIS: Small rectal polyp. PROCEDURE: Colonoscopy with cold forceps biopsy. SURGEON: Dr. Alston. ANESTHESIA: MAC. Medications given by anesthesia department. HISTORY: The patient is a 54 year old white female presenting now for her first screening colonoscopy. She was appraised of the risks of the procedure including the risk of perforation, phlebitis, untoward reaction to medication, bleeding and missed lesions. The patient verbalized her understanding and desired to have the procedure performed. DESCRIPTION OF PROCEDURE: The patient was given the medications by the anesthesia department. She had continuous pulse oximetry, ECG monitoring, intermittent blood pressure monitoring and tidal CO2 monitoring during the examination. She was placed in the left lateral decubitus position. A digital rectal examination was performed and revealed normal anal sphincter tone and no masses. The flexible Olympus pediatric colonoscope was used to intubate the rectum. A view of the colon was developed sequentially to the cecum. Upon insertion and withdrawal was noted a few small polyps in the rectum and these were biopsied using cold biopsy technique to determine if there is any abnormal change. The scope was removed from the patient who tolerated the procedure well and was sent back to OP recovery in good condition. The prep was noted to be fair to good with some liquid stool still left in the colon particularly in the transverse colon. The colon was also noted to be long and tortuous.
[2020-01-16 09:15] VITALS: BP 150/90; PULSE 85
== END 2020-01-16 09:07 | disposition home or self-care (01) ==
LOC: SDC 05:43
PROVIDERS: ATTEND Family Medicine
DX: Z12.11 Encounter for screening for malignant neoplasm of colon (principal); D12.8 Benign neoplasm of rectum; E11.9 Type 2 diabetes mellitus without complications; I10 Essential (primary) hypertension; E03.9 Hypothyroidism, unspecified; Z79.899 Other long term (current) drug therapy
CPT/HCPCS: 82962; 84703; 88305; J2704

== ENCOUNTER 2020-03-02 07:54 | Inpatient (IN) | payer OTHER ==
[~2020-03-02 07:54] MED LIST changes: -DIPRIVAN 200 MG/20 ML IV ONE; +Lactated Ringers 1,000 ML IV ONE
[2020-03-02] MEDS ORDERED: CEFAZOLIN 2 GM-D5W BAG** 2 GM/50 ML ML IV ONE ×2 (08:04→08:07)
[2020-03-02] MEDS ORDERED: Lactated Ringers 1,000 ML IV ONE ×2 (08:07→10:00)
[2020-03-02] MEDS ORDERED: Lactated Ringers 1,000 ML IV SCH (08:30)
[2020-03-02] MEDS ORDERED: Transderm Scop 1.5MG Patch TOP PRN (08:34)
[2020-03-02] MEDS ORDERED: Versed 2 MG/2 ML Injection ONE ×2 (08:36→09:13)
[2020-03-02] MEDS ORDERED: Transderm Scop 1.5MG Patch ONE (08:36)
[2020-03-02] MEDS: Versed 2 MG/2 ML Injection IV PRN ×2 (08:41→10:05)
[2020-03-02 08:59] LABS: ANION GAP 8.4 MEQ/L (5-15); BLOOD UREA NITROGEN 10 mg/dL (7-17); CHLORIDE 106 mmol/L (98-107); Calcium 9.6 mg/dL (8.4-10.2); Carbon Dioxide 29 mmol/L (22-30); Creatinine 1 0.67 mg/dL (0.52-1.04); EST GLOMERULAR FILTRATION RATE > 60.0 ML/MIN; Glucose 112 mg/dL (74-106); Potassium 3.7 mmol/L (3.5-5.1); SODIUM 139 mmol/L (137-145)
[2020-03-02] MEDS ORDERED: SUBLIMAZE 100 MCG/2 ML ONE ×3 (09:14→13:01)
[2020-03-02] MEDS ORDERED: DIPRIVAN 200 MG/20 ML IV ONE (09:14)
[2020-03-02 09:59] LABS: ABO TYPING A; Antibody Screen NEGATIVE (NEGATIVE); RH TYPING POSITIVE
[2020-03-02 10:01] LABS: Hematocrit 42.9 % (35-47); Hemoglobin 13.2 gm/dl (12.0-16.0); Mean Cell Volume 85.6 fl (78-100); Mean Corpuscular Hemoglobin 26.3 pg (26-32); Mean Corpuscular Hgb Concent. 30.8 g/dl (32-36); Mean Platelet Volume 10.5 fl (7.5-11.0); Platelet Count 333 K/mm3 (150-450); Red Blood Count 5.01 M/mm3 (4.1-5.4); Red Cell Distribution Width 13.8 % (11.5-14.0); White Blood Count 5.3 K/mm3 (4.0-10.5)
[2020-03-02] MEDS ORDERED: DILAUDID 2 MG INJECTION ONE (10:32)
[2020-03-02] MEDS ORDERED: Marcaine Spinal Ampul IJ ONE (11:05)
[2020-03-02] MEDS ORDERED: Naropin 0.5% 30 ML VIAL ONE (11:05)
[2020-03-02] MEDS ORDERED: EPINEPHRINE 1MG/ML AMP ONE (11:05)
[2020-03-02] MEDS ORDERED: TRANDATE 20 MG/4 ML SYRINGE IV ONE (11:20)
[2020-03-02] MEDS ORDERED: Zofran 4 MG/2 ML VIAL ONE (11:40)
[2020-03-02] MEDS ORDERED: BRIDION 200MG/2ML IV ONE (12:01)
[2020-03-02] MEDS ORDERED: Narcan 0.4 MG/ML IV PRN (12:45)
[2020-03-02 13:28] LABS: Appearance SLIGHTLY CLOUDY (CLEAR); Bacteria MODERATE /HPF (NEGATIVE); Bilirubin NEGATIVE (NEGATIVE); Blood NEGATIVE Ery/ul (0-5); Glucose NEGATIVE (NEGATIVE); Ketones NEGATIVE (NEGATIVE); Leukocyte Esterase NEGATIVE (NEGATIVE); Mucus SLIGHT /HPF (NEGATIVE); Nitrite NEGATIVE (NEGATIVE); Protein,Urine Dip NEGATIVE (Negative); Specific Gravity 1.012 (1.005-1.025); Urobilinogen NEGATIVE mg/dL (0-1); WBC 0-2 /HPF (0-5)
[2020-03-02] MEDS: DILAUDID 1 MG/1ML PCA IV PRN (13:41)
[2020-03-02] MEDS ORDERED: Zofran 4 MG/2 ML VIAL IV PRN (14:41)
[2020-03-02] MEDS ORDERED: PHARMACY DOSING REQUIRED: DILAUDID PCA IV STA (14:47)
[2020-03-02] MEDS ORDERED: MEDICATION INTERVENTION MC SCH (15:00)
[2020-03-02] MEDS: CEFAZOLIN 2 GM-D5W BAG** 2 GM/50 ML ML IV SCH ×2 (16:48→21:40)
[2020-03-02] MEDS: Reglan 10 MG/2 ML IV SCH ×2 (16:50→21:42)
[2020-03-02] MEDS: Mylicon 80MG PO SCH ×2 (16:52→22:00)
[2020-03-02] MEDS: ZYLOPRIM 100 MG PO SCH (16:53)
[2020-03-02] MEDS: SYNTHROID 50 MCG PO SCH (16:53)
[2020-03-02] MEDS: Colace 100 MG PO SCH ×2 (16:53→21:41)
[2020-03-02] MEDS: Glucophage 500 MG PO SCH (16:53)
[2020-03-02] MEDS: Dilantin 100 MG PO SCH ×2 (16:54→21:41)
[2020-03-02] MEDS: Lexapro 10 MG PO SCH (16:54)
[2020-03-02] MEDS: ZOCOR 20MG PO SCH (16:54)
[2020-03-02 18:15] LABS: Hemoglobin 10.7 gm/dl (12.0-16.0); Mean Cell Volume 87.8 fl (78-100); Mean Corpuscular Hemoglobin 26.1 pg (26-32); Mean Corpuscular Hgb Concent. 29.7 g/dl (32-36); Mean Platelet Volume 9.5 fl (7.5-11.0); Platelet Count 300 K/mm3 (150-450); Red Cell Distribution Width 13.5 % (11.5-14.0); White Blood Count 13.9 K/mm3 (4.0-10.5)
[2020-03-02] MEDS: Toprol-Xl 25MG Tablets PO SCH (18:42)
[2020-03-02] MEDS: KEPPRA 500 MG PO SCH (21:41)
[2020-03-02] MEDS: Cyclobenzaprine 10 MG PO SCH (21:41)
[2020-03-02] MEDS: NEURONTIN 300 MG PO SCH (21:41)
[2020-03-02] MEDS ORDERED: NON-FORMULARY ITEM (Cyclobenzaprine Hcl [Flexeril] 5 MG) PO SCH (22:00)
[2020-03-02] MEDS ORDERED: LEVETIRACETAM 500 MG PO SCH (22:00)
[2020-03-03] MEDS: Lactated Ringers 1,000 ML IV SCH ×3 (00:10→07:45)
[2020-03-03 04:37] LABS: Hematocrit 35.1 % (35-47); Hemoglobin 10.7 gm/dl (12.0-16.0); Mean Cell Volume 88.6 fl (78-100); Mean Corpuscular Hgb Concent. 30.5 g/dl (32-36); Platelet Count 273 K/mm3 (150-450); Red Blood Count 3.96 M/mm3 (4.1-5.4); Red Cell Distribution Width 13.5 % (11.5-14.0); White Blood Count 7.8 K/mm3 (4.0-10.5)
[2020-03-03 04:55] LABS: ALBUMIN 3.3 g/dL (3.5-5.0); ALKALINE PHOSPHATASE 70 U/L (38-126); ANION GAP 5.7 MEQ/L (5-15); BLOOD UREA NITROGEN 8 mg/dL (7-17); CHLORIDE 101 mmol/L (98-107); Calcium 8.6 mg/dL (8.4-10.2); Carbon Dioxide 33 mmol/L (22-30); Creatinine 1 0.69 mg/dL (0.52-1.04); EST GLOMERULAR FILTRATION RATE > 60.0 ML/MIN; Glucose 131 mg/dL (74-106); Potassium 4.5 mmol/L (3.5-5.1); SGOT/AST 25 U/L (14-36); SGPT/ALT 11 U/L (0-35); SODIUM 135 mmol/L (137-145); Total Protein 6.3 g/dL (6.3-8.2)
[2020-03-03] MEDS: Reglan 10 MG/2 ML IV SCH ×3 (05:12→20:39)
[2020-03-03] MEDS: Mylicon 80MG PO SCH ×3 (05:12→20:38)
[2020-03-03] MEDS: DILAUDID 1 MG/1ML PCA IV PRN ×2 (05:38→08:03)
[2020-03-03] MEDS: ENOXAPARIN SODIUM SQ SCH (07:46)
[2020-03-03] MEDS ORDERED: NORCO 5/325 MG PO PRN ×2 (07:57→20:46)
--- NOTE | 2020-03-03 09:06 | OP ---
SURGERY DATE/TIME: 03/02/2020 1018 PREOPERATIVE DIAGNOSIS: Symptomatic large fibroid uterus. POSTOPERATIVE DIAGNOSIS: Symptomatic large fibroid uterus. PROCEDURE: Laparotomy, supracervical hysterectomy, bilateral salpingectomy. SURGEON: Balbir Henry D.O. CHUCKER: Christine Alex, Physician Offset Plate Preparation Supervisor student. Elana Miles, hand frame surgical elastic knitter. ANESTHESIA: General. ESTIMATED BLOOD LOSS: 250 cc. COMPLICATIONS: None. INDICATIONS: The risks, benefits, indications and alternatives of the procedure were reviewed with the patient prior to procedure. The patient understood the risk of infection, bleeding, bowel injury, bladder injury, ureteral injury, pelvic infection, thromboembolic disorder associated with the surgery however desires to have this procedure as a possible need to alleviate her current medical condition. DESCRIPTION OF PROCEDURE AND FINDINGS: At this point the patient is taken to the operating room where she is placed in supine position, given general anesthesia, prepared and draped in the usual sterile fashion. A Pfannenstiel incision was made approximately 2 cm above the symphysis pubis and extended sharply to the rectus fascia. The fascia was then incised bilaterally with curved Rhoades scissors and the muscle of the anterior abdominal wall in the midline by sharp and blunt dissection. The peritoneum was grasped between two pickups elevated and entered sharply with Metzenbaum scissors. The pelvis is then examined and noted to have an 18 week size uterus where a large fundal fibroid was noted approximately 7 x 8 cm and a lower inferior anterior fibroid approximately 8 x 9 cm identified. From this point O'Rc-O'Calvillo retractor was placed into the incision and the bowel packed away with moist laparotomy sponges. From this point the LigaSure was then used and placed over the left utero-ovarian ligament where it was clamped, coagulated and cut from the uterus and was taken down to the round ligament towards the uterine vasculature. On the left side anterior lip of the broad ligament was incised, clamped, coagulated and cut where the bladder reflection was incised with Metzenbaum scissors to the midline on its side. The bladder was gently dissected off the lower uterine segment and the cervix with a sponge stick. The same procedure was performed on the right side where the right utero-ovarian ligament was clamped, coagulated and cut from the right side of the uterus and was taken down from the round ligament towards the uterine vasculature where the Metzenbaum scissors were used to dissect the bladder reflection from the cervix and then the bladder was then gently dissected off the lower uterine segment with a sponge stick. The uterine vessels were identified, were clamped, coagulated and cut with LigaSure and hemostasis was obtained. From this point the uterus is then amputated with cautery and was done so without complication. The uterine cervical stump was closed with interrupted sutures of 0 Vicryl. At this point also the bilateral fallopian tubes were lifted and excised using the LigaSure and this was done so without complication. Hemostasis was obtained. From this point the pelvis was then irrigated copiously with warm normal saline. At this point all lap, sponge and instruments were removed from the patient's abdomen. The muscles were closed in interrupted 2-0 chromic suture followed by the fascia using 0 Vicryl suture and hemostasis assured. The subcutaneous layer was closed with 3-0 Vicryl suture and the skin was closed with absorbable stephan called INSORB. Sponge, lap, needle and instrument counts were correct x2. The patient was then taken to the recovery room in stable condition. All instruments and laps were accounted for x2.
[2020-03-03] MEDS ORDERED: NON-FORMULARY ITEM (Liraglutide [Victoza 2-Pak] 1.2 MG) SQ SCH (10:00)
[2020-03-03] MEDS ORDERED: NON-FORMULARY ITEM (Pravastatin Sodium [Pravachol] 20 MG) PO SCH (10:00)
[2020-03-03] MEDS ORDERED: ESCITALOPRAM OXALATE 5 MG PO SCH (10:00)
[2020-03-03] MEDS: Cyclobenzaprine 10 MG PO SCH (11:09)
[2020-03-03] MEDS: Colace 100 MG PO SCH ×2 (11:10→20:38)
[2020-03-03] MEDS: KEPPRA 500 MG PO SCH ×2 (11:10→20:38)
[2020-03-03] MEDS: ZOCOR 20MG PO SCH (11:10)
[2020-03-03] MEDS: Glucophage 500 MG PO SCH (11:10)
[2020-03-03] MEDS: Lexapro 10 MG PO SCH (11:10)
[2020-03-03] MEDS: Dilantin 100 MG PO SCH ×3 (11:10→20:38)
[2020-03-03] MEDS: SYNTHROID 50 MCG PO SCH (11:10)
[2020-03-03] MEDS: Toprol-Xl 25MG Tablets PO SCH (11:11)
[2020-03-03] MEDS: ZYLOPRIM 100 MG PO SCH (11:11)
[2020-03-03] MEDS ORDERED: Dulcolax 10 MG SUPP PR ONE (14:39)
[2020-03-03 15:13] LABS: Hemoglobin 11.1 gm/dl (12.0-16.0); Mean Cell Volume 87.6 fl (78-100); Mean Corpuscular Hgb Concent. 30.8 g/dl (32-36); Mean Platelet Volume 9.3 fl (7.5-11.0); Platelet Count 286 K/mm3 (150-450); Red Blood Count 4.11 M/mm3 (4.1-5.4); Red Cell Distribution Width 13.7 % (11.5-14.0)
[2020-03-03 15:36] LABS: ALBUMIN 3.6 g/dL (3.5-5.0); ALKALINE PHOSPHATASE 77 U/L (38-126); ANION GAP 9.4 MEQ/L (5-15); BLOOD UREA NITROGEN 8 mg/dL (7-17); CHLORIDE 99 mmol/L (98-107); Calcium 8.9 mg/dL (8.4-10.2); Carbon Dioxide 29 mmol/L (22-30); Creatinine 1 0.67 mg/dL (0.52-1.04); EST GLOMERULAR FILTRATION RATE > 60.0 ML/MIN; Glucose 137 mg/dL (74-106); SGOT/AST 30 U/L (14-36); SGPT/ALT 14 U/L (0-35); SODIUM 134 mmol/L (137-145); Total Protein 6.7 g/dL (6.3-8.2)
[2020-03-03 15:39] LABS: Appearance CLEAR (CLEAR); Bacteria RARE /HPF (NEGATIVE); Bilirubin NEGATIVE (NEGATIVE); Blood MODERATE Ery/ul (0-5); Epithelial Cells RARE /HPF (FEW); Glucose NEGATIVE (NEGATIVE); Ketones NEGATIVE (NEGATIVE); Leukocyte Esterase MODERATE (NEGATIVE); Mucus SLIGHT /HPF (NEGATIVE); Nitrite NEGATIVE (NEGATIVE); Protein,Urine Dip NEGATIVE (Negative); Urobilinogen NEGATIVE mg/dL (0-1)
--- NOTE | 2020-03-03 16:28 | XRAY ---
Indication: Post hysterectomy. Comparison: July 14, 2019. Portable chest now markedly underinflated with bibasilar atelectasis. Remaining upper lungs, heart, and bony thorax unremarkable.
[2020-03-03] MEDS ORDERED: ROCEPHIN 2 Gm-D5w 50ML BAG** 2 G/50 ML IVPB IV ONE (17:38)
[2020-03-03] MEDS: ROCEPHIN 2 Gm-D5w 50ML BAG** 2 G/50 ML IVPB IV SCH (18:22)
--- NOTE | 2020-03-03 20:09 | PCM.NOTE ---
Date and Time: 03/03/202005 Subjective Assessment: Patient is POD#1 Total abdominal hysterectomy due to large uterine fibroid.TEST TECHNICIAN Dr Henry requested Medical consult because patient continues to be lethargic post op.Her nurse reports that she is unsteady walking to bathroom and is sleeping alot and not taking deep breaths ,has required O2 4L but is down to 2L this evening after albuterol neb treatments. CXR shows bibasilar atelectasis. Patient says she feels light headed/dizzy but better since off Dilaudid . Had 1 dose of [place] this morning but no pain meds through the day. Post op pain level at 8/10 now. Urine output 700cc today. Is drinking water and ate 25% of her supper . Denies chest pain or back pain or sob or cough. Denies N/V/D. Patient has is on Dilantin and Keppra for seizure Hx,followed by Neurology. Objective Exam General Appearance: no apparent distress Neurologic Exam: cooperative, other (is alert enough to answer questions with short answers but appears somnulent,eyelids heavy. no dysarthria no focal motor defecits.) Skin Exam: normal color, warm, dry Eye Exam: PERRL, EOMI, eyes nml inspection Ears, Nose, Throat Exam: normal ENT inspection Neck Exam: normal inspection Respiratory Exam: diminished breath sounds (bibasilar) Cardiovascular Exam: regular rate/rhythm Gastrointestinal/Abdomen Exam: soft, tenderness (normal post op tenderness) Extremity Exam: normal inspection (no calf tenderness,no pitting) Back Exam: normal inspection OBJECTIVE DATA Vital Signs: Vital Signs - 24 hr Temp Pulse Resp BP Pulse Ox 03/03/20 18:58 98.8 F 87 17 149/77 93 L 03/03/20 16:47 88 18 98 03/03/20 15:46 99.3 F 90 18 131/81 98 03/03/20 11:27 98.4 F 88 14 128/68 96 03/03/20 08:03 95 03/03/20 06:49 95 03/03/20 06:46 98.6 F 88 14 109/61 94 L 03/03/20 05:38 94 L 03/03/20 04:09 98.0 F 91 H 15 133/70 97 03/02/20 23:47 98.0 F 80 16 116/61 96 03/02/20 20:30 96 Pain Assessment - Last Documented Pain Intensity 4 Pain Scale Used 0-10 Pain Scale Intake and Output: Intake & Output 03/01/20 03/02/20 03/03/20 03/04/20 11:59 11:59 11:59 11:59 Intake Total 1714 840 Output Total 1100 700 Balance 614 140 Weight 80 kg 80 kg Lab Results: Lab Results-Last 24 Hours 03/03/20 03/03/20 03/03/20 Range/Units 04:25 04:25 15:05 WBC 7.8 9.0 (4.0-10.5) K/mm3 RBC 3.96 L 4.11 (4.1-5.4) M/mm3 Hgb 10.7 L 11.1 L (12.0-16.0) gm/dl Hct 35.1 36.0 (35-47) % MCV 88.6 87.6 (78-100) fl MCH 27.0 27.0 (26-32) pg MCHC 30.5 L 30.8 L (32-36) g/dl RDW 13.5 13.7 (11.5-14.0) % Plt Count 273 286 (150-450) K/mm3 MPV 9.0 9.3 (7.5-11.0) fl Sodium 135 L (137-145) mmol/L Potassium 4.5 D (3.5-5.1) mmol/L Chloride 101 (98-107) mmol/L Carbon Dioxide 33 H (22-30) mmol/L Anion Gap 5.7 (5-15) MEQ/L BUN 8 (7-17) mg/dL Creatinine 0.69 (0.52-1.04) mg/dL Estimated GFR > 60.0 ML/MIN Glucose 131 H (74-106) mg/dL Calcium 8.6 (8.4-10.2) mg/dL Total Bilirubin 0.60 (0.2-1.3) mg/dL AST 25 (14-36) U/L ALT 11 (0-35) U/L Alkaline Phosphatase 70 (38-126) U/L Serum Total Protein 6.3 (6.3-8.2) g/dL Albumin 3.3 L (3.5-5.0) g/dL TSH 3rd Generation (0.47-4.68) mIU/L Urine Color (YELLOW) Urine Appearance (CLEAR) Urine pH (5-6) Ur Specific [place] (1.005-1.025) Urine Protein (Negative) Urine Ketones (NEGATIVE) Urine Blood (0-5) Callum/ul Urine Nitrite (NEGATIVE) Urine Bilirubin (NEGATIVE) Urine Urobilinogen (0-1) mg/dL Ur Leukocyte Esterase (NEGATIVE) Urine WBC (Auto) (0-5) /HPF Urine RBC (Auto) (0-2) /HPF U Epithel Cells (Auto) (FEW) /HPF Urine Bacteria (Auto) (NEGATIVE) /HPF Urine Mucus (Auto) (NEGATIVE) /HPF Urine Culture Reflexed (NO) Urine Glucose (NEGATIVE) mg/dL Phenytoin (10-20) ug/mL 03/03/20 03/03/20 03/03/20 Range/Units 15:05 15:05 15:05 WBC (4.0-10.5) K/mm3 RBC (4.1-5.4) M/mm3 Hgb (12.0-16.0) gm/dl Hct (35-47) % MCV (78-100) fl MCH (26-32) pg MCHC (32-36) g/dl RDW (11.5-14.0) % Plt Count (150-450) K/mm3 MPV (7.5-11.0) fl Sodium 134 L (137-145) mmol/L Potassium 4.0 (3.5-5.1) mmol/L Chloride 99 (98-107) mmol/L Carbon Dioxide 29 (22-30) mmol/L Anion Gap 9.4 (5-15) MEQ/L BUN 8 (7-17) mg/dL Creatinine 0.67 (0.52-1.04) mg/dL Estimated GFR > 60.0 ML/MIN Glucose 137 H (74-106) mg/dL Calcium 8.9 (8.4-10.2) mg/dL Total Bilirubin 0.70 (0.2-1.3) mg/dL AST 30 (14-36) U/L ALT 14 (0-35) U/L Alkaline Phosphatase 77 (38-126) U/L Serum Total Protein 6.7 (6.3-8.2) g/dL Albumin 3.6 (3.5-5.0) g/dL TSH 3rd Generation 2.520 (0.47-4.68) mIU/L Urine Color (YELLOW) Urine Appearance (CLEAR) Urine pH (5-6) Ur Specific [place] (1.005-1.025) Urine Protein (Negative) Urine Ketones (NEGATIVE) Urine Blood (0-5) Callum/ul Urine Nitrite (NEGATIVE) Urine Bilirubin (NEGATIVE) Urine Urobilinogen (0-1) mg/dL Ur Leukocyte Esterase (NEGATIVE) Urine WBC (Auto) (0-5) /HPF Urine RBC (Auto) (0-2) /HPF U Epithel Cells (Auto) (FEW) /HPF Urine Bacteria (Auto) (NEGATIVE) /HPF Urine Mucus (Auto) (NEGATIVE) /HPF Urine Culture Reflexed (NO) Urine Glucose (NEGATIVE) mg/dL Phenytoin < 3.0 L (10-20) ug/mL 03/03/20 Range/Units 15:20 WBC (4.0-10.5) K/mm3 RBC (4.1-5.4) M/mm3 Hgb (12.0-16.0) gm/dl Hct (35-47) % MCV (78-100) fl MCH (26-32) pg MCHC (32-36) g/dl RDW (11.5-14.0) % Plt Count (150-450) K/mm3 MPV (7.5-11.0) fl Sodium (137-145) mmol/L Potassium (3.5-5.1) mmol/L Chloride (98-107) mmol/L Carbon Dioxide (22-30) mmol/L Anion Gap (5-15) MEQ/L BUN (7-17) mg/dL Creatinine (0.52-1.04) mg/dL Estimated GFR ML/MIN Glucose (74-106) mg/dL Calcium (8.4-10.2) mg/dL Total Bilirubin (0.2-1.3) mg/dL AST (14-36) U/L ALT (0-35) U/L Alkaline Phosphatase (38-126) U/L Serum Total Protein (6.3-8.2) g/dL Albumin (3.5-5.0) g/dL TSH 3rd Generation (0.47-4.68) mIU/L Urine Color YELLOW (YELLOW) Urine Appearance CLEAR (CLEAR) Urine pH 5.0 (5-6) Ur Specific [place] 1.010 (1.005-1.025) Urine Protein NEGATIVE (Negative) Urine Ketones NEGATIVE (NEGATIVE) Urine Blood MODERATE (0-5) Callum/ul Urine Nitrite NEGATIVE (NEGATIVE) Urine Bilirubin NEGATIVE (NEGATIVE) Urine Urobilinogen NEGATIVE (0-1) mg/dL Ur Leukocyte Esterase MODERATE (NEGATIVE) Urine WBC (Auto) 11-15 (0-5) /HPF Urine RBC (Auto) 6-10 (0-2) /HPF U Epithel Cells (Auto) RARE (FEW) /HPF Urine Bacteria (Auto) RARE (NEGATIVE) /HPF Urine Mucus (Auto) SLIGHT (NEGATIVE) /HPF Urine Culture Reflexed ORDERED SEPARATELY (NO) Urine Glucose NEGATIVE (NEGATIVE) mg/dL Phenytoin (10-20) ug/mL Radiology Exams: Radiology Procedures Category Date Time Status CHEST 1 VIEW (PORTABLE) Stat Exams 03/03/20 15:15 Completed Assessment/Plan (1) Hypoxia Current Visit: Yes Status: Acute Assessment & Plan: post op,respiratory following,Neb albuterol treatments . Is on 4L O2 and has not required O2 in the past. CT Chest ordered. Code(s): R09.02 - HYPOXEMIA (2) Atelectasis Current Visit: Yes Status: Acute Assessment & Plan: Insentive spirometery ,albuterol neb tx started and nurse to encourage up in chair and short walk but due to patient's somnolence she is not easily motivated. (3) Urinary tract infection Current Visit: No Status: Acute Assessment & Plan: culture pending,is on IV Rocephin. Code(s): N39.0 - URINARY TRACT INFECTION, SITE NOT SPECIFIED (4) FH: total abdominal hysterectomy and bilateral salpingo-oophorectomy Current Visit: Yes Status: Acute Code(s): Z84.2 - FAMILY HISTORY OF OTHER DISEASES OF THE GENITOURINARY SYSTEM (5) S/P laparoscopic hysterectomy Current Visit: Yes Status: Acute Assessment & Plan: post op day#1 Code(s): Z90.710 - ACQUIRED ABSENCE OF BOTH CERVIX AND UTERUS
[2020-03-03] MEDS: PROVENTIL 2.5 MG/3 ML NEB IH SCH (20:10)
[2020-03-03] MEDS: NEURONTIN 300 MG PO SCH (20:39)
[2020-03-03] MEDS: ULTRAM 50 MG PO PRN (20:39)
[2020-03-04] MEDS: Sodium Chloride 0.9% 1000 ML 1,000 ML IV SCH ×2 (00:14→11:48)
[2020-03-04] MEDS: PROVENTIL 2.5 MG/3 ML NEB IH SCH ×4 (03:29→19:06)
[2020-03-04 05:10] LABS: BASOPHIL % 0.2 % (0.0-0.4); Basophil (Absolute #) 0.02 (0-0.4); Hematocrit 34.9 % (35-47); Hemoglobin 10.8 gm/dl (12.0-16.0); Lymphocyte (Absolute #) 1.01 (1.0-4.6); Lymphocytes % 10.1 % (24.0-44.0); Mean Cell Volume 86.8 fl (78-100); Mean Corpuscular Hemoglobin 26.9 pg (26-32); Mean Corpuscular Hgb Concent. 30.9 g/dl (32-36); Mean Platelet Volume 9.7 fl (7.5-11.0); Monocyte (Absolute #) 1.16 (0.0-1.3); Monocytes % 11.6 % (0.0-12.0); Neutrophil % 77.1 % (36.0-66.0); Platelet Count 286 K/mm3 (150-450); Red Blood Count 4.02 M/mm3 (4.1-5.4); Red Cell Distribution Width 13.9 % (11.5-14.0)
[2020-03-04] MEDS: Reglan 10 MG/2 ML IV SCH ×2 (05:32→14:52)
[2020-03-04] MEDS: Mylicon 80MG PO SCH ×3 (05:32→21:20)
[2020-03-04] MEDS: ENOXAPARIN SODIUM SQ SCH (08:04)
--- NOTE | 2020-03-04 09:28 | XRAY ---
Indication: Hypoxia following hysterectomy 2 days ago. Lethargy. Multiple contiguous axial images obtained through the chest using 80 cc Isovue 370 contrast and PE protocol. Comparison: July 14, 2019. There is adequate opacification of the pulmonary arteries to include the lobar and segmental branches. Again no pulmonary embolus. Heart is not enlarged. Aorta is normal in course and caliber. No pathologic mediastinal/hilar lymphadenopathy. Lungs now demonstrates moderate bilateral dependent atelectasis, right greater than left. No suspicious pulmonary mass, infiltrate, or effusion. Bony thorax intact again with mild degenerative changes throughout the spine. Stable 1.2 cm left thyroid hypodense nodule/cyst. Limited upper abdomen demonstrates new tiny perihepatic free air and tiny fluid both presumed related to recent surgery. Also abnormally fluid distended stomach and small bowel loops with fluid leveling, possible postoperative ileus. Impression: 1. Again negative pulmonary embolus. 2. Worsening bilateral dependent atelectasis. 3. New perihepatic free fluid/air presumed related to recent surgery. 4. New fluid distended stomach and bowel loops with fluid leveling possibly postoperative ileus. 5. Stable small left thyroid nodule/cyst. Comment: Preliminary interpretation was made by [facility]. No critical discrepancy.
[2020-03-04] MEDS: ZOCOR 20MG PO SCH (10:19)
[2020-03-04] MEDS: Toprol-Xl 25MG Tablets PO SCH (10:19)
[2020-03-04] MEDS: Colace 100 MG PO SCH ×2 (10:19→21:19)
[2020-03-04] MEDS: ZYLOPRIM 100 MG PO SCH (10:19)
[2020-03-04] MEDS: Lexapro 10 MG PO SCH (10:20)
[2020-03-04] MEDS: ROCEPHIN 2 Gm-D5w 50ML BAG** 2 G/50 ML IVPB IV SCH (10:21)
[2020-03-04] MEDS: Dilantin 100 MG PO SCH ×3 (10:21→21:19)
[2020-03-04] MEDS: SYNTHROID 50 MCG PO SCH (10:21)
[2020-03-04] MEDS: KEPPRA 500 MG PO SCH ×2 (10:21→21:20)
[2020-03-04] MEDS: Glucophage 500 MG PO SCH (10:21)
[2020-03-04] MEDS: HOLD METFORMIN PRODUCTS FOR 48 HOURS MC SCH (11:33)
[2020-03-04] MEDS ORDERED: HUMALOG SQ PRN (12:08)
[2020-03-04] MEDS: ULTRAM 50 MG PO PRN ×2 (12:24→21:20)
[2020-03-04] MEDS ORDERED: Toprol-Xl 25MG Tablets PO ONE (16:37)
[2020-03-04] MEDS ORDERED: Lasix 20 MG/2 ML IV ONE (16:42)
[2020-03-04] MEDS ORDERED: ROCEPHIN 2 Gm-D5w 50ML BAG** 2 G/50 ML IVPB IV SCH (17:09)
[2020-03-04] MEDS: NEURONTIN 300 MG PO SCH (21:20)
[2020-03-05] MEDS: ULTRAM 50 MG PO PRN ×3 (04:01→21:58)
[2020-03-05 04:56] LABS: Hematocrit 37.3 % (35-47); Hemoglobin 11.5 gm/dl (12.0-16.0); Mean Cell Volume 85.7 fl (78-100); Mean Corpuscular Hemoglobin 26.4 pg (26-32); Mean Corpuscular Hgb Concent. 30.8 g/dl (32-36); Mean Platelet Volume 9.4 fl (7.5-11.0); Platelet Count 360 K/mm3 (150-450); Red Blood Count 4.35 M/mm3 (4.1-5.4); Red Cell Distribution Width 13.9 % (11.5-14.0); White Blood Count 11.3 K/mm3 (4.0-10.5)
[2020-03-05 05:20] LABS: ALBUMIN 3.4 g/dL (3.5-5.0); ALKALINE PHOSPHATASE 87 U/L (38-126); ANION GAP 6.7 MEQ/L (5-15); BLOOD UREA NITROGEN 6 mg/dL (7-17); CHLORIDE 99 mmol/L (98-107); Calcium 8.6 mg/dL (8.4-10.2); Carbon Dioxide 32 mmol/L (22-30); Creatinine 1 0.52 mg/dL (0.52-1.04); EST GLOMERULAR FILTRATION RATE > 60.0 ML/MIN; Glucose 143 mg/dL (74-106); Potassium 3.9 mmol/L (3.5-5.1); SGOT/AST 28 U/L (14-36); SGPT/ALT 11 U/L (0-35); SODIUM 133 mmol/L (137-145); Total Protein 6.9 g/dL (6.3-8.2)
[2020-03-05] MEDS: Mylicon 80MG PO SCH ×3 (05:56→21:58)
[2020-03-05] MEDS: PROVENTIL 2.5 MG/3 ML NEB IH SCH ×3 (06:52→19:26)
[2020-03-05] MEDS ORDERED: Sodium Chloride 0.9% 10 ML FLUSH Syringe IV PRN (07:15)
[2020-03-05] MEDS: Toprol-Xl 25MG Tablets PO SCH ×2 (10:48→22:07)
[2020-03-05] MEDS: KEPPRA 500 MG PO SCH ×2 (10:48→21:58)
[2020-03-05] MEDS: SYNTHROID 50 MCG PO SCH (10:48)
[2020-03-05] MEDS: ENOXAPARIN SODIUM SQ SCH (10:48)
[2020-03-05] MEDS: Colace 100 MG PO SCH ×2 (10:49→21:58)
[2020-03-05] MEDS: ROCEPHIN 2 Gm-D5w 50ML BAG** 2 G/50 ML IVPB IV SCH (10:49)
[2020-03-05] MEDS: Lexapro 10 MG PO SCH (10:49)
[2020-03-05] MEDS: ZYLOPRIM 100 MG PO SCH (10:49)
[2020-03-05] MEDS: ZOCOR 20MG PO SCH (10:49)
[2020-03-05] MEDS: Dilantin 100 MG PO SCH ×3 (10:49→21:58)
[2020-03-05] MEDS: HOLD METFORMIN PRODUCTS FOR 48 HOURS MC SCH (11:42)
--- NOTE | 2020-03-05 13:29 | PCM.NOTE ---
Date and Time: 03/05/20 1324 Subjective Assessment: Patient states she feels unsteady on her feet but no dizzy any longer,has walked the ramos with PT. No BM since hysterectomy but is passing flatus, no appetite.Had EEG today ordered because patient has been somnulent and Hx epilepsy followed by Dr Sparks. Objective Exam Neurologic Exam: alert, oriented x 3, cooperative Skin Exam: normal color, warm, dry, pale Ears, Nose, Throat Exam: normal ENT inspection Respiratory Exam: normal breath sounds, diminished breath sounds (bases) Cardiovascular Exam: regular rate/rhythm Gastrointestinal/Abdomen Exam: soft (decreased bowel sounds), tenderness (as expected post op) Extremity Exam: normal inspection Back Exam: normal inspection (no CVA tenderness) OBJECTIVE DATA Vital Signs: Vital Signs - 24 hr Temp Pulse Resp BP Pulse Ox 03/05/20 12:00 97.3 F 71 22 115/72 90 L 03/05/20 07:41 97.5 F 73 18 137/87 93 L 03/05/20 06:55 74 16 95 03/05/20 04:00 98.2 F 69 17 169/91 97 03/05/20 00:00 98.4 F 76 18 160/93 96 03/04/20 19:06 84 16 96 03/04/20 18:34 98.2 F 88 24 143/90 95 03/04/20 16:00 98.4 F 84 18 186/95 96 Oxygen-Last 24 hours Oxygen Flowrate (L/min)-RT 2 Oxygen Flowrate (L/min)-RT 2 Pain Assessment - Last Documented Pain Intensity 6 Pain Scale Used 0-10 Pain Scale Intake and Output: Intake & Output 03/03/20 03/04/20 03/05/20 03/06/20 11:59 11:59 11:59 11:59 Intake Total 1714 1767 2307 360 Output Total 1100 2260 2150 Balance 614 -493 157 360 Weight 80 kg 80 kg Lab Results: Lab Results-Last 24 Hours 03/02/20 03/04/20 03/04/20 Range/Units 11:11 04:55 16:19 WBC (4.0-10.5) K/mm3 RBC (4.1-5.4) M/mm3 Hgb (12.0-16.0) gm/dl Hct (35-47) % MCV (78-100) fl MCH (26-32) pg MCHC (32-36) g/dl RDW (11.5-14.0) % Plt Count (150-450) K/mm3 MPV (7.5-11.0) fl Sodium (137-145) mmol/L Potassium (3.5-5.1) mmol/L Chloride (98-107) mmol/L Carbon Dioxide (22-30) mmol/L Anion Gap (5-15) MEQ/L BUN (7-17) mg/dL Creatinine (0.52-1.04) mg/dL Estimated GFR ML/MIN Glucose (74-106) mg/dL POC Glucometer 132 H (74 to 106) mg/dL Hemoglobin A1c 5.73 (4.5-6.0) % Calcium (8.4-10.2) mg/dL Total Bilirubin (0.2-1.3) mg/dL AST (14-36) U/L ALT (0-35) U/L Alkaline Phosphatase (38-126) U/L Serum Total Protein (6.3-8.2) g/dL Albumin (3.5-5.0) g/dL 25-OH Vitamin D Total (30-100) ng/mL Surg PTH Diagnosis See Note H 03/04/20 03/05/20 03/05/20 Range/Units 22:04 04:30 04:40 WBC 11.3 H (4.0-10.5) K/mm3 RBC 4.35 (4.1-5.4) M/mm3 Hgb 11.5 L (12.0-16.0) gm/dl Hct 37.3 (35-47) % MCV 85.7 (78-100) fl MCH 26.4 (26-32) pg MCHC 30.8 L (32-36) g/dl RDW 13.9 (11.5-14.0) % Plt Count 360 (150-450) K/mm3 MPV 9.4 (7.5-11.0) fl Sodium (137-145) mmol/L Potassium (3.5-5.1) mmol/L Chloride (98-107) mmol/L Carbon Dioxide (22-30) mmol/L Anion Gap (5-15) MEQ/L BUN (7-17) mg/dL Creatinine (0.52-1.04) mg/dL Estimated GFR ML/MIN Glucose (74-106) mg/dL POC Glucometer 133 H (74 to 106) mg/dL Hemoglobin A1c (4.5-6.0) % Calcium (8.4-10.2) mg/dL Total Bilirubin (0.2-1.3) mg/dL AST (14-36) U/L ALT (0-35) U/L Alkaline Phosphatase (38-126) U/L Serum Total Protein (6.3-8.2) g/dL Albumin (3.5-5.0) g/dL 25-OH Vitamin D Total < 12.8 L (30-100) ng/mL Surg PTH Diagnosis 03/05/20 03/05/20 03/05/20 Range/Units 04:40 07:19 11:45 WBC (4.0-10.5) K/mm3 RBC (4.1-5.4) M/mm3 Hgb (12.0-16.0) gm/dl Hct (35-47) % MCV (78-100) fl MCH (26-32) pg MCHC (32-36) g/dl RDW (11.5-14.0) % Plt Count (150-450) K/mm3 MPV (7.5-11.0) fl Sodium 133 L (137-145) mmol/L Potassium 3.9 (3.5-5.1) mmol/L Chloride 99 (98-107) mmol/L Carbon Dioxide 32 H (22-30) mmol/L Anion Gap 6.7 (5-15) MEQ/L BUN 6 L (7-17) mg/dL Creatinine 0.52 (0.52-1.04) mg/dL Estimated GFR > 60.0 ML/MIN Glucose 143 H (74-106) mg/dL POC Glucometer 115 H 187 H (74 to 106) mg/dL Hemoglobin A1c (4.5-6.0) % Calcium 8.6 (8.4-10.2) mg/dL Total Bilirubin 0.40 (0.2-1.3) mg/dL AST 28 (14-36) U/L ALT 11 (0-35) U/L Alkaline Phosphatase 87 (38-126) U/L Serum Total Protein 6.9 (6.3-8.2) g/dL Albumin 3.4 L (3.5-5.0) g/dL 25-OH Vitamin D Total (30-100) ng/mL Surg PTH Diagnosis Radiology Exams: Radiology Procedures Category Date Time Status CHEST 1 VIEW (PORTABLE) Stat Exams 03/03/20 15:15 Completed CHEST WITH CONTRAST [CT] Routine Exams 03/04/20 00:54 Completed Multi-Disciplinary Progress Notes: Multi-Disciplinary Progress Notes 03/05/20 12:11 Case Management Note by Beverly Gilbert PATIENT CONTINUES TO DENY ANY NEEDS REGARDING DC AT THIS TIME. IF HOME OXYGEN IS NEEDED AT TIME OF DC- PATIENT WOULD LIKE TO USE [facility]. [facility] ORDER FORM AND INSTRUCTIONS PLACED ON CHART IF NEEDED OVER THE WEEKEND. Initialized on 03/05/20 12:11 - END OF NOTE 03/05/20 11:41 Physical Therapy Note by Janell Solis PT. SEEN BY P.TCarlo THIS AM. IN BED UPON PT ARRIVAL TO ROOM. REPORTS ABD PN IS DECREASED (08/30). STATES SHE HAS BEEN WORKING W/ SPIROMETER AND R.T. REPORTED THEY HAD JUST TAKEN HER OFF OF 2L 02. PT. LIVES W/ [place] AND REPORTS HE WILL BE ABLE TO HELP HER W/ MOBILITY AT HOME. STATES SHE DOES NOT SMOKE. PERFORMED SUPINE TO SIT W/ MIN ASISST W/ HOB ELEVATED. SIT TO STAND CGA-MIN ASSIST. 02 SATS DECREASED TO 82% W/ TRANSFERS. INCREASED TO 90-94% ON RA W/ CUES FOR PROPER BREATHING. PT. AMBULATED 80' W/ 2 REST BREAKS TO BREATHE PROPERLY O2 SATS DECREASED TO 87% WHILE WALKING BUT PT. RECOVERED WELL ON RA W/ REST AND PROPER BREATHING. NO C/O DIZZINESS W/ MOBILITY. REQUIRES SBA W/ GAIT D/T RISKS W/ DECREASED O2 SATS AND POST-OP WEAKNESS. WILL CONT. PT TO INCREASE ENDURANCE AND PROGRESS INDEPENDENCE W/ FUNCTIONAL MOBILITY. PT. WILL NEED FREQUENT ENCOURAGEMENT FROM [facility] TO SIT UP IN CHAIR AND AMBULATE FREQUENTLY. JANELL SOLIS, PT Initialized on 03/05/20 11:41 - END OF NOTE 03/04/20 14:07 Case Management Note by Huma Chan Talked with MARIO ALBERTO YOUNG regarding needs at time of discharge. Patient reports residing at home with spouse. Patient reports plans on returning to home upon discharge. pt is INDEPENDENT WITH ADLS. SHE REPORTS THAT SHE HAS ALL NECESSITIES AND NO DIFFICULTIES. PT STATES SHE DOES NOT ANTICIPATE ANY NEEDS AND PLANS TO RETURN HOME TO prior level of functioning. [ End ] . Initialized on 03/04/20 14:07 - END OF NOTE Assessment/Plan (1) Hypoxia Current Visit: Yes Status: Acute Assessment & Plan: will require outpatient O2 Code(s): R09.02 - HYPOXEMIA (2) Atelectasis Current Visit: Yes Status: Acute Assessment & Plan: Dr Wong consulted by phone,states it can take 4-6 weeks to resolve post op and he will see her this week as outpatient. (3) Urinary tract infection Current Visit: No Status: Acute Assessment & Plan: repeat UA today Code(s): N39.0 - URINARY TRACT INFECTION, SITE NOT SPECIFIED (4) S/P laparoscopic hysterectomy Current Visit: Yes Status: Acute Code(s): Z90.710 - ACQUIRED ABSENCE OF BOTH CERVIX AND UTERUS (5) History of epilepsy Current Visit: Yes Status: Chronic Assessment & Plan: EEG completed this morning and results are pending,will follow up with Neurologist Dr Sparks. 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
[2020-03-05] MEDS: Sodium Chloride 0.9% 10 ML FLUSH Syringe IV SCH ×2 (14:56→22:07)
[2020-03-05] MEDS: NEURONTIN 300 MG PO SCH (21:58)
[2020-03-05 22:09] LABS: Appearance SLIGHTLY CLOUDY (CLEAR); Bilirubin NEGATIVE (NEGATIVE); Blood SMALL Ery/ul (0-5); Glucose NEGATIVE (NEGATIVE); Ketones TRACE (NEGATIVE); Leukocyte Esterase TRACE (NEGATIVE); Mucus MODERATE /HPF (NEGATIVE); Nitrite NEGATIVE (NEGATIVE); Protein,Urine Dip 30 (Negative); Specific Gravity 1.026 (1.005-1.025); Urobilinogen NEGATIVE mg/dL (0-1)
[2020-03-06] MEDS: ULTRAM 50 MG PO PRN (03:27)
[2020-03-06] MEDS: Mylicon 80MG PO SCH (06:22)
[2020-03-06] MEDS: Sodium Chloride 0.9% 10 ML FLUSH Syringe IV SCH (06:22)
[2020-03-06] MEDS: PROVENTIL 2.5 MG/3 ML NEB IH SCH (06:51)
[2020-03-06] MEDS ORDERED: Glucophage 500 MG PO SCH (10:00)
--- NOTE | 2020-03-06 10:14 | PCM.DS ---
Discharge Summary Date of Admission: 03/02/20 07:54 Date of Discharge: 03/06/2020 Admitting Physician: JAMA WARREN DO Consults: Consults on Case 03/03/20 14:30 Consult Physician ROUTINE 03/05/20 12:25 Consult Pulmonology ROUTINE Primary Care Provider: BHAKTI AYALA DO Allergies Allergies codeine Allergy (Severe, Verified 03/02/20 08:07) Shortness of Breath levofloxacin Allergy (Verified 03/02/20 08:07) Shortness of Breath naproxen Allergy (Verified 03/02/20 08:07) Shortness of Breath Hospital Summary - Hospital Course Hospital Course: Pt. admitted for hysterectomy post-operatively the patient had troubles with oxygen saturation, pt. also some unsteadiness with gait, pt. has improved and doing well, now able to walk on her own, still desaturatoin with activity but holding 92% consistently while at rest. Pt. feeling better and stable for discharge. - Vitals & Intake/Output Vital Signs: Vital Signs Temperature 98.3 F 03/06/20 07:16 Pulse Rate 72 03/06/20 07:16 Respiratory Rate 20 03/06/20 07:16 Blood Pressure 110/70 03/06/20 07:16 O2 Sat by Pulse Oximetry 91 L 03/06/20 07:39 Intake & Output: Intake & Output 03/03/20 03/04/20 03/05/20 03/06/20 11:59 11:59 11:59 11:59 Intake Total 1714 1767 2307 1730 Output Total 1100 2260 2150 900 Balance 614 -493 157 830 Weight 80 kg 80 kg - Lab Result Diagrams: 03/05/20 04:40 03/05/20 04:40 Lab Results-Last 24 Hrs: Lab Results-Last 24 Hours 03/05/20 03/05/20 03/05/20 Range/Units 11:45 15:44 16:22 POC Glucometer 187 H 139 H 131 H (74 to 106) mg/dL Urine Color (YELLOW) Urine Appearance (CLEAR) Urine pH (5-6) Ur Specific [place] (1.005-1.025) Urine Protein (Negative) Urine Ketones (NEGATIVE) Urine Blood (0-5) Callum/ul Urine Nitrite (NEGATIVE) Urine Bilirubin (NEGATIVE) Urine Urobilinogen (0-1) mg/dL Ur Leukocyte Esterase (NEGATIVE) Urine WBC (Auto) (0-5) /HPF Urine RBC (Auto) (0-2) /HPF U Epithel Cells (Auto) (FEW) /HPF Urine Bacteria (Auto) (NEGATIVE) /HPF Urine Mucus (Auto) (NEGATIVE) /HPF Urine Culture Reflexed (NO) Urine Glucose (NEGATIVE) mg/dL 03/05/20 03/05/20 03/06/20 Range/Units 20:37 22:00 06:51 POC Glucometer 151 H 100 (74 to 106) mg/dL Urine Color YELLOW (YELLOW) Urine Appearance SLIGHTLY CLOUDY (CLEAR) Urine pH 6.0 (5-6) Ur Specific [place] 1.026 (1.005-1.025) Urine Protein 30 (Negative) Urine Ketones TRACE (NEGATIVE) Urine Blood SMALL (0-5) Callum/ul Urine Nitrite NEGATIVE (NEGATIVE) Urine Bilirubin NEGATIVE (NEGATIVE) Urine Urobilinogen NEGATIVE (0-1) mg/dL Ur Leukocyte Esterase TRACE (NEGATIVE) Urine WBC (Auto) 3-5 (0-5) /HPF Urine RBC (Auto) 3-5 (0-2) /HPF U Epithel Cells (Auto) NONE (FEW) /HPF Urine Bacteria (Auto) NONE (NEGATIVE) /HPF Urine Mucus (Auto) MODERATE (NEGATIVE) /HPF Urine Culture Reflexed YES (NO) Urine Glucose NEGATIVE (NEGATIVE) mg/dL Micro Results-Entire Visit: Microbiology 03/02/20 10:30 Urine Culture - Final Clean Catch Midstream Escherichia Coli 03/03/20 15:20 Urine Culture - Final Urine, Catheterized Escherichia Coli Accuchecks Date 03/05/20 Date 03/05/20 Time 16:22 - Procedures and Test Procedures and Tests throughout Hospitalization: Therapy Orders & Screens 03/02/20 14:44 Oxygen NASAL CANNULA 4 lpm Comment: Diagnosis: status post hysterectomy 03/03/20 16:46 Peak Expiratory Flow Rate ONCE Comment: Reason For Exam: Diagnosis: status post hysterectomy Respiratory Therapy Assessment DAILY Comment: Diagnosis: status post hysterectomy 03/03/20 16:50 Incentive Spirometry TID Comment: Diagnosis: status post hysterectomy 03/04/20 12:11 PT Eval & Treat ( Order) ONCE Reason for Eval:: decreased post-op mobility with hypoxia Diagnosis: status post hysterectomy 03/04/20 17:15 EKG ROUTINE Comment: Diagnosis: status post hysterectomy 03/05/20 08:00 EEG 41-60 Minutes (Normal) ONCE Comment: Reason For Exam: pt obtunded; has seizure disorder Diagnosis: status post hysterectomy Discharge Exam General Appearance: no apparent distress Neurologic Exam: alert, cooperative Eye Exam: eyes nml inspection Ears, Nose, Throat Exam: normal ENT inspection Neck Exam: normal inspection, non-tender Respiratory Exam: normal breath sounds, lungs clear, No chest tenderness Cardiovascular Exam: regular rate/rhythm, normal heart sounds, normal peripheral pulses Gastrointestinal/Abdomen Exam: soft, normal bowel sounds, tenderness, ecchymosis (post -op changes of bruising noted, no infection of incision), No distention, No mass, No guarding Pelvic Exam: deferred Rectal Exam: deferred Skin Exam: normal color, warm, dry, No rash, No petechiae, No jaundice Final Diagnosis/Problem List - Final Discharge Diagnosis/Problem (1) FH: total abdominal hysterectomy and bilateral salpingo-oophorectomy Current Visit: Yes Status: Acute Assessment & Plan: wound stable and 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 Code(s): Z84.2 - FAMILY HISTORY OF OTHER DISEASES OF THE GENITOURINARY SYSTEM (2) Hypoxia Current Visit: Yes Status: Acute Assessment & Plan: home on oxygen with pulmonary follow-up Code(s): R09.02 - HYPOXEMIA (3) Urinary tract infection Current Visit: No Status: Acute Assessment & Plan: home on oral abx Code(s): N39.0 - URINARY TRACT INFECTION, SITE NOT SPECIFIED - Discharge Disposition: Home, Self-Care Condition: Stable Prescriptions: No Action Phenytoin Sod Extended 100 mg* [Dilantin 100 MG] 100 mg PO TID Levetiracetam [Keppra] 500 mg PO BID Liraglutide [Victoza 2-Vincent] 1.2 mg SQ DAILY Ergocalciferol (Vitamin D2) [Vitamin D2] 1,250 mcg PO WEEKLY Metformin HCl 500 mg [Glucophage 500 MG] 500 mg PO DAILY Cyclobenzaprine HCl [Flexeril] 5 mg PO BID Allopurinol 100 mg [Zyloprim 100 mg] 100 mg PO DAILY Pravastatin Sodium [Pravachol] 20 mg PO DAILY Metoprolol Succinate 25 mg Xl* [Toprol-Xl 25MG Tablets] 25 mg PO DAILY Escitalopram Oxalate [Lexapro] 5 mg PO DAILY Levothyroxine Sodium 50 Mcg [Synthroid 50 Mcg] 50 mcg PO DAILY Gabapentin 300 mg PO QHS Follow up with: JOSUE LE [ACTIVE STAFF] - 03/11/20 9:00 am (APPOINTMENT IS AT THE [facility]) BHAKTI AYALA DO [Primary Care Provider] - JAMA WARREN DO [ACTIVE STAFF] - 03/17/20 3:30 pm
[2020-03-06] MEDS: ROCEPHIN 2 Gm-D5w 50ML BAG** 2 G/50 ML IVPB IV SCH (10:17)
[2020-03-06] MEDS: ENOXAPARIN SODIUM SQ SCH (10:17)
[2020-03-06] MEDS: Lexapro 10 MG PO SCH (10:18)
[2020-03-06] MEDS: SYNTHROID 50 MCG PO SCH (10:18)
[2020-03-06] MEDS: Colace 100 MG PO SCH (10:18)
[2020-03-06] MEDS: Dilantin 100 MG PO SCH (10:18)
[2020-03-06] MEDS: Toprol-Xl 25MG Tablets PO SCH (10:18)
[2020-03-06] MEDS: KEPPRA 500 MG PO SCH (10:19)
[2020-03-06] MEDS: ZYLOPRIM 100 MG PO SCH (10:19)
[2020-03-06] MEDS: ZOCOR 20MG PO SCH (10:19)
[2020-03-06] MEDS: HOLD METFORMIN PRODUCTS FOR 48 HOURS MC SCH (10:21)
[2020-03-06 13:06] VITALS: BP 107/58; PULSE 80; O2SAT 95
[2020-03-08] MEDS ORDERED: VITAMIN D2 PO SCH (10:00)
== END 2020-03-06 11:55 | disposition home or self-care (01) | DRG 742 ==
LOC: OBSVTOIN 07:54 → MED SURG 07:54 → EDSTATUS 19:54
PROVIDERS: ADMIT Obstetrics & Gynecology; ATTEND Obstetrics & Gynecology
PROC: 0UT90ZL Resection of Uterus, Supracervical, Open Approach (ICD-10-PCS; principal; 2020-03-02)
DX: D25.9 Leiomyoma of uterus, unspecified (principal); N39.0 Urinary tract infection, site not specified; J98.11 Atelectasis; J96.11 Chronic respiratory failure with hypoxia; N80.0 Endometriosis of uterus; E11.9 Type 2 diabetes mellitus without complications; Z86.69 Personal history of other diseases of the nervous system and sense organs; Z79.899 Other long term (current) drug therapy
CPT/HCPCS: 36415; 64488; 71045; 71260; 76937; 76942; 80048; 80053; 80177; 80185; 81001; 82306; 82947; 83036; 84443; 84703; 85025; 85027; 86850; 86900; 86901; 87077; 87086; 87186; 88305; 93005; 94002; 94150; 94250; 94640; 94760; 94762; 95812; J0171; J0690; J0696; J1170; J1650; J1940; J2250; J2405; J2704; J2795; J3010; J7609; A9270-GY

== ENCOUNTER 2020-03-11 04:55 | Emergency (ER) | payer OTHER ==
--- NOTE | 2020-03-11 04:57 | ERPHSYRPT ---
<MAX JOLLEY - Last Filed: 03/11/20 06:52> - History of Present Illness Time Seen by Provider: 03/11/20 04:57 Historian: patient, EMS Exam Limitations: no limitations Physician History: This is a 54-year-old white female who has a history of mitral valve prolapse and tachycardia and presents to the emergency department with chest pain and associated shortness of breath that woke her up out of her sleep. Approximately 1 week ago patient underwent laparoscopic assisted hysterectomy by Dr. Henry. At home, patient received 2 nitroglycerin. She did not take any aspirin. Patient has a history of epilepsy and is on Keppra Dilantin for this. She also history of diabetes hypothyroidism gout and hypertension. She has a history of elevated cholesterol. She has no history of any coronary artery disease but has had a cardiac catheterization in the past. Patient states that the chest pain is in the left anterior chest but the pain starts in her generalized abdomen and goes up into the left chest. It is sharp and then radiates into her left jaw and neck. Patient states that she was kept in the hospital 5 days after her surgery because of low oxygen level. He was on a Dilaudid pump while in the hospital. Patient denies calf pain. Timing/Duration: today Activities at Onset: sleep Quality: sharpness Location: other (Left anterior chest) Chest Pain Radiation: jaw, neck (Left side) Severity of Pain-Max: moderate Severity of Pain-Current: moderate Associated Symptoms: shortness of breath Prior Chest Pain/Cardiac Workup: cardiac cath Nitro Today/Relief: 0.4 mg x 2 Aspirin Treatment Today: no aspirin today Allergies/Adverse Reactions: codeine Allergy (Severe, Verified 03/11/20 05:16) Shortness of Breath levofloxacin Allergy (Verified 03/11/20 05:16) Shortness of Breath naproxen Allergy (Verified 03/11/20 05:16) Shortness of Breath Home Medications: Levetiracetam [Keppra] 1,000 mg PO BID 09/24/18 [History] Phenytoin Sod Extended 100 mg* [Dilantin 100 MG] 100 mg PO TID 09/24/18 [History] Allopurinol 100 mg [Zyloprim 100 mg] 100 mg PO DAILY 01/05/20 [History] Ergocalciferol (Vitamin D2) [Vitamin D2] 1,250 mcg PO WEEKLY 01/05/20 [History] Metoprolol Succinate 25 mg Xl* [Toprol-Xl 25MG Tablets] 25 mg PO DAILY 01/05/20 [History] Levothyroxine Sodium 50 Mcg [Synthroid 50 Mcg] 50 mcg PO DAILY 02/12/20 [History] Atorvastatin Calcium 20 mg PO DAILY 03/11/20 [History] Cyanocobalamin (Vitamin B-12) [Vitamin B12] 1,000 mcg PO DAILY 03/11/20 [History] Meclizine HCl 12.5 mg PO TID PRN PRN 03/11/20 [History] Hx Tetanus, Diphtheria Vaccination/Date Given: Yes Hx Influenza Vaccination/Date Given: No Hx Pneumococcal Vaccination/Date Given: No Travel Risk - International Travel Have you traveled outside of the country in past 3 weeks: No - Coronavirus Screening Are you exhibiting any of the following symptoms?: No Close contact with a COVID-19 positive Pt in past 14-21 Days: No - Review of Systems Constitutional: No Symptoms Eyes: No Symptoms Ears, Nose, & Throat: No Symptoms Respiratory: Dyspnea Cardiac: Chest Pain Abdominal/Gastrointestinal: Abdominal Pain Genitourinary Symptoms: No Symptoms Musculoskeletal: No Symptoms Skin: No Symptoms Neurological: No Symptoms Psychological: No Symptoms Endocrine: No Symptoms Hematologic/Lymphatic: No Symptoms Immunological/Allergic: No Symptoms All Other Systems: Reviewed and Negative - Past Medical History Pertinent Past Medical History: Yes Neurological History: Seizures ENT History: No Pertinent History Cardiac History: High Cholesterol, Hypertension, Other Respiratory History: No Pertinent History Endocrine Medical History: Diabetes Type II Musculoskeletal History: No Pertinent History GI Medical History: No Pertinent History History: No Pertinent History Psycho-Social History: Anxiety Female Reproductive Disorders: No Pertinent History Other Medical History: mitral valve prolapse and tachycardia - Past Surgical History Past Surgical History: Yes Neuro Surgical History: No Pertinent History Cardiac: Cardiac Catheterization Respiratory: No Pertinent History Gastrointestinal: Appendectomy Genitourinary: No Pertinent History Musculoskeletal: Orthopedic Surgery, Other Female Surgical History: Hysterectomy, Section Other Surgical History: right forearm surgery ( repair ,hdwe placed and removed all but a few screws" right knee surgery(fx with hdwe placed) C-sectiom x 2 - Social History Smoking Status: Former smoker Exposure to second hand smoke: No Drug Use: none Patient Lives Alone: No - Physical Exam General Appearance: moderate distress, alert, anxiety, obese Eye Exam: PERRL/EOMI, eyes nml inspection Ears, Nose, Throat Exam: normal ENT inspection, moist mucous membranes Neck Exam: normal inspection, non-tender, supple, full range of motion Respiratory Exam: normal breath sounds, chest tenderness, lungs clear, airway intact, No respiratory distress Cardiovascular Exam: tachycardia Gastrointestinal/Abdomen Exam: soft, normal bowel sounds, tenderness (Are lysed), other (Incision site looks clean dry and intact) Pelvic Exam: not done Rectal Exam: not done Back Exam: normal inspection, normal range of motion, No CVA tenderness Extremity Exam: normal inspection, normal range of motion, pelvis stable Neurologic Exam: alert, oriented x 3, cooperative, lead nuclear medicine technologist II-XII nml as tested, sensation nml Skin Exam: other (Operative incision site appears clean dry and intact) Lymphatic Exam: No adenopathy SpO2 Interpretation: normal O2 Delivery: Room Air - Course Nursing assessment & vital signs reviewed: Yes EKG Interpreted by Me: RATE ([id number]), Sinus Tach, NORMAL AXIS, NORMAL INTERVALS, NORMAL QRS, Other (There are no acute ischemic changes on today's EKG. The initial EKG leads do not appear to be adequately placed. We will repeat the EKG.) - Progress Progress: improved, re-examined Air Movement: good Progress Note: 03/11/20 06:52 Transfer of care to Dr. Shipley at time of shift change. I reviewed the patient history, condition, pending lab and x-ray reports and current lab results that have returned. He agrees to assume care of the patient and determine final disposition. Blood Culture(s) Obtained: No Antibiotics given: No Counseled pt/family regarding: lab results, diagnosis, need for follow-up, rad results - Departure Departure Disposition: Observation Clinical Impression: Postoperative abdominal pain, Cholelithiasis without cholecystitis, Hypertension Chest pain Qualifiers: Chest pain type: unspecified Qualified Code(s): R07.9 - Chest pain, unspecified Condition: Stable Critical Care Time: No Referrals: BHAKTI MEYERS DO [Primary Care Provider] - 03/12/20 (Follow-up to get a referral to general surgery your symptoms reevaluated) ABELARDO BRICENO MD [ASSOCIATE STAFF] - 11/19/20 (general surgeon for your reference) Instructions: Chest Pain (DC), Gallstones (DC), Postoperative Pain (DC), Acute Abdomen (Belly Pain), Adult (DC) Additional Instructions: Return immediately back to the emergency room if you have any worsening abdominal pain, shortness of breath, coughing up blood, pain on inspiration, new back pain, new fever, new blood in the urine, new blood in the stool, dizziness, heart racing sensation, change in mental status or any other concerning signs or symptoms that were not present at today's emergency department visit for immediate reevaluation in the emergency department <CHELSI SHIPLEY - Last Filed: 03/11/20 10:50> - Nursing Vital Signs Nursing Vital Signs: Initial Vital Signs Temperature 98.4 F 03/11/20 05:05 Pulse Rate 111 H 03/11/20 05:05 Respiratory Rate 20 03/11/20 05:05 Blood Pressure 150/90 03/11/20 05:05 O2 Sat by Pulse Oximetry 97 03/11/20 05:05 Pain Scale Pain Intensity 4 - CT Exams Chest CT Interpretation: No PE, Other (No central pulmonary embolus. Improved bibasilar atelectasis) Abdomen/Pelvis CT Interpretation: Other (Status post partial hysterectomy. Small pelvic free f luid in right lower quadrant abdominal changes as detailed presumed postoperative. No walled off fluid collection or free air. Moderately distended gallbladder without gallstones. Sonogram may yield further information if clinically warranted.) Ordered Tests: Active Orders 24 hr Category Date Time Status Incident Analyst STAT Care 03/11/20 05:02 Active EKG-ER Only STAT Care 03/11/20 05:01 Active IV Insertion STAT Care 03/11/20 05:01 Active ABDOMEN AND PELVIS W CONTRAST [CT] Stat Exams 03/11/20 05:14 Completed CHEST WITH CONTRAST [CT] Stat Exams 03/11/20 05:26 Completed GALLBLADDER [US] Stat Exams 03/11/20 08:45 Completed CBC W DIFF Stat Lab 03/11/20 05:21 Completed CMP Stat Lab 03/11/20 05:21 Completed D-DIMER QUANTITATIVE Stat Lab 03/11/20 05:21 Completed NT PRO BNP Stat Lab 03/11/20 05:21 Completed TROPONIN Q3H Lab 03/11/20 05:21 Completed TROPONIN Q3H Lab 03/11/20 08:48 Completed TROPONIN Q3H Lab 03/11/20 11:15 Ordered TROPONIN Q3H Lab 03/11/20 14:15 Ordered TROPONIN Q3H Lab 03/11/20 17:15 Ordered Medication Summary Generic Name Dose Route Start Last Admin Trade Name Any PRN Reason Stop Dose Admin Sodium Chloride 1,000 mls @ 100 mls/hr 03/11/20 05:15 03/11/20 05:44 Sodium Chloride 0.9% 1000 Ml IV 04/10/20 05:14 100 mls/hr .Q10H TODD Administration Discontinued Medications Generic Name Dose Route Start Last Admin Trade Name Any PRN Reason Stop Dose Admin Aspirin 324 mg 03/11/20 05:01 03/11/20 05:45 Baby Aspirin 81 Mg Chew PO 03/11/20 05:02 324 mg STAT ONE Administration Aspirin Confirm 03/11/20 05:42 Baby Aspirin 81 Mg Chew Administered 03/11/20 05:43 Dose 324 mg .ROUTE .STK-MED ONE Hydromorphone HCl 1 mg 03/11/20 05:26 03/11/20 05:47 Hydromorphone 1 Mg/Ml Injection IV 03/11/20 05:27 1 mg STAT ONE Administration Hydromorphone HCl Confirm 03/11/20 05:43 Hydromorphone 1 Mg/Ml Injection Administered 03/11/20 05:44 Dose 1 mg .ROUTE .STK-MED ONE Ondansetron HCl 4 mg 03/11/20 05:01 03/11/20 05:46 Zofran 4 Mg/2 Ml Vial IV 03/11/20 05:02 4 mg STAT ONE Administration Ondansetron HCl Confirm 03/11/20 05:42 Zofran 4 Mg/2 Ml Vial Administered 03/11/20 05:43 Dose 4 mg .ROUTE .STK-MED ONE Lab/Rad Data: Laboratory Result Diagrams 03/11/20 05:21 03/11/20 05:21 Laboratory Results 03/11/20 03/11/20 03/11/20 Range/Units 08:48 05:21 05:21 WBC (4.0-10.5) K/mm3 RBC (4.1-5.4) M/mm3 Hgb (12.0-16.0) gm/dl Hct (35-47) % MCV (78-100) fl MCH (26-32) pg MCHC (32-36) g/dl RDW (11.5-14.0) % Plt Count (150-450) K/mm3 MPV (7.5-11.0) fl Gran % (36.0-66.0) % Eos # (Auto) (0-0.5) Absolute Lymphs (auto) (1.0-4.6) Absolute Monos (auto) (0.0-1.3) Lymphocytes % (24.0-44.0) % Monocytes % (0.0-12.0) % Eosinophils % (0.00-5.0) % Basophils % (0.0-0.4) % Absolute Granulocytes (1.4-6.9) Basophils # (0-0.4) D-Dimer (215-500) ng/mL Sodium (137-145) mmol/L Potassium (3.5-5.1) mmol/L Chloride (98-107) mmol/L Carbon Dioxide (22-30) mmol/L Anion Gap (5-15) MEQ/L BUN (7-17) mg/dL Creatinine (0.52-1.04) mg/dL Estimated GFR ML/MIN Glucose (74-106) mg/dL Calcium (8.4-10.2) mg/dL Total Bilirubin (0.2-1.3) mg/dL AST (14-36) U/L ALT (0-35) U/L Alkaline Phosphatase (38-126) U/L Troponin I < 0.012 < 0.012 (0.000-0.034) ng/mL NT-Pro-B Natriuret Pep (0-900) pg/mL Serum Total Protein (6.3-8.2) g/dL Albumin (3.5-5.0) g/dL Phenytoin < 3.0 L (10-20) ug/mL 03/11/20 03/11/20 03/11/20 Range/Units 05:21 05:21 05:21 WBC 11.8 H (4.0-10.5) K/mm3 RBC 4.07 L (4.1-5.4) M/mm3 Hgb 10.6 L (12.0-16.0) gm/dl Hct 34.2 L (35-47) % MCV 84.0 (78-100) fl MCH 26.0 (26-32) pg MCHC 31.0 L (32-36) g/dl RDW 14.5 H (11.5-14.0) % Plt Count 410 (150-450) K/mm3 MPV 8.9 (7.5-11.0) fl Gran % 78.8 H (36.0-66.0) % Eos # (Auto) 0.29 (0-0.5) Absolute Lymphs (auto) 1.18 (1.0-4.6) Absolute Monos (auto) 1.00 (0.0-1.3) Lymphocytes % 10.0 L (24.0-44.0) % Monocytes % 8.5 (0.0-12.0) % Eosinophils % 2.5 (0.00-5.0) % Basophils % 0.2 (0.0-0.4) % Absolute Granulocytes 9.26 H (1.4-6.9) Basophils # 0.02 (0-0.4) D-Dimer 42815 H* (215-500) ng/mL Sodium 137 (137-145) mmol/L Potassium 3.9 (3.5-5.1) mmol/L Chloride 105 (98-107) mmol/L Carbon Dioxide 23 (22-30) mmol/L Anion Gap 13.1 (5-15) MEQ/L BUN 9 (7-17) mg/dL Creatinine 0.55 (0.52-1.04) mg/dL Estimated GFR > 60.0 ML/MIN Glucose 160 H (74-106) mg/dL Calcium 9.3 (8.4-10.2) mg/dL Total Bilirubin 0.40 (0.2-1.3) mg/dL AST 31 (14-36) U/L ALT 19 (0-35) U/L Alkaline Phosphatase 110 (38-126) U/L Troponin I (0.000-0.034) ng/mL NT-Pro-B Natriuret Pep 62.6 (0-900) pg/mL Serum Total Protein 7.1 (6.3-8.2) g/dL Albumin 3.9 (3.5-5.0) g/dL Phenytoin (10-20) ug/mL - Progress Progress Note: 03/11/20 09:01 Patient feeling better, but is still tachycardic on the monitor 03/11/20 10:43 Patient is in sinus rhythm on the home care provider with improvement of her tachycardia as she is under 100 in the late 90s in sinus rhythm on the cardiac m onitor 03/11/20 10:46 Patient came in with chest pain after eating as well as lower abdominal pain status post hysterectomy and salpingo-oophorectomy and care was transferred me from previous emergency room attending to follow-up lab work and CT scan imaging. Lab work and CT scan imaging were negative and patient had negative troponin x2. Patient was found to have a distended gallbladder on CT of the abdomen pelvis but no signs of any postoperative infection or bleeding, with no change in H&H from previous labs or on imaging studies, and no signs of pulmonary embolus on the CT of the chest, although was not optimal. Patient was discussed with her physician, Dr. Meyers, who states patient can be discharged home and I reviewed with Dr. Meyers that she had a right upper quadrant ultrasound that showed biliary sludge and cholelithiasis and Dr. Meyers will have the patient follow-up with general surgery as an outpatient and did not need admitted at this time since no signs of cholecystitis or any other abnormalities were found on today's visit. Patient did have mild tachycardia that improved with IV hydration and she was hemodynamically good condition with no other concerning signs on lab work that required further inpatient evaluation or monitoring at this time and will be discharged home to follow-up as an outpatient with Dr. Deutsch and general surgery on 03/12/2020 Discussed with : Yessi (Discussed the patient with Dr Meyers, patient's physician and reviewed the labs and CT imaging results. Dr Meyers feels patient can be discharged home and Dr Meyers will see her in the office on 03/12/2020. I reviewed with Dr Meyers the [facility] ultrasound interpretation also) - Departure Departure Disposition: Home
[2020-03-11] MEDS ORDERED: Zofran 4 MG/2 ML VIAL IV ONE (05:01)
[2020-03-11] MEDS ORDERED: BABY ASPIRIN 81 MG CHEW PO ONE (05:01)
[2020-03-11] MEDS ORDERED: Sodium Chloride 0.9% 1000 ML 1,000 ML IV SCH (05:15)
[2020-03-11 05:22] LABS: Absolute Neutrophil Ct (ANC) 9.26 (1.4-6.9); BASOPHIL % 0.2 % (0.0-0.4); Basophil (Absolute #) 0.02 (0-0.4); Eosinophil % 2.5 % (0.00-5.0); Eosinophil (Absolute #) 0.29 (0-0.5); Hematocrit 34.2 % (35-47); Hemoglobin 10.6 gm/dl (12.0-16.0); Lymphocyte (Absolute #) 1.18 (1.0-4.6); Mean Platelet Volume 8.9 fl (7.5-11.0); Monocytes % 8.5 % (0.0-12.0); Neutrophil % 78.8 % (36.0-66.0); Platelet Count 410 K/mm3 (150-450); Red Blood Count 4.07 M/mm3 (4.1-5.4); Red Cell Distribution Width 14.5 % (11.5-14.0); White Blood Count 11.8 K/mm3 (4.0-10.5)
[2020-03-11] MEDS ORDERED: Hydromorphone 1 mg/ml Injection IV ONE (05:26)
[2020-03-11] MEDS ORDERED: Zofran 4 MG/2 ML VIAL ONE (05:42)
[2020-03-11] MEDS ORDERED: BABY ASPIRIN 81 MG CHEW ONE (05:42)
[2020-03-11] MEDS ORDERED: Sodium Chloride 0.9% 1000 ML 1,000 ML ONE (05:43)
[2020-03-11] MEDS ORDERED: Hydromorphone 1 mg/ml Injection ONE (05:43)
[2020-03-11 05:57] LABS: NT PRO BNP 62.6 pg/mL (0-900)
[2020-03-11 06:09] LABS: ALBUMIN 3.9 g/dL (3.5-5.0); ALKALINE PHOSPHATASE 110 U/L (38-126); ANION GAP 13.1 MEQ/L (5-15); BLOOD UREA NITROGEN 9 mg/dL (7-17); CHLORIDE 105 mmol/L (98-107); Calcium 9.3 mg/dL (8.4-10.2); Carbon Dioxide 23 mmol/L (22-30); Creatinine 1 0.55 mg/dL (0.52-1.04); EST GLOMERULAR FILTRATION RATE > 60.0 ML/MIN; Glucose 160 mg/dL (74-106); Potassium 3.9 mmol/L (3.5-5.1); SGOT/AST 31 U/L (14-36); SGPT/ALT 19 U/L (0-35); SODIUM 137 mmol/L (137-145); Total Protein 7.1 g/dL (6.3-8.2)
--- NOTE | 2020-03-11 08:43 | XRAY ---
Indication: Elevated d-dimer. Status post hysterectomy. Multiple contiguous images obtained through the chest using 80 cc Isovue 370 contrast and PE protocol. Comparison: March 04, at 2020. There is satisfactory opacification of the pulmonary arteries. However mild respiration artifact limits evaluation of the more distal lobar and segmental branches. No central pulmonary embolus. Heart is not enlarged. Aorta is normal in course and caliber. No pathologic mediastinal/hilar lymphadenopathy. Lungs again demonstrates mild bibasilar atelectasis less than before. No suspicious pulmonary mass, infiltrate, or effusion. Bony thorax intact again with mild degenerative changes throughout the spine. CT abdomen/pelvis reported separately. Impression: 1. Pulmonary embolus evaluation limited by respiration artifact. No central pulmonary embolus. 2. Improved bibasilar atelectasis. 3. No new/acute cardiopulmonary abnormalities.
--- NOTE | 2020-03-11 08:46 | XRAY ---
Indication: Abdomen pain and bloating. Status post laparoscopic hysterectomy. Multiple contiguous axial images obtained through the abdomen and pelvis using 80 cc Isovue 370 contrast only. Comparison: None CT chest reported septally. Noncontrasted stomach and bowel loops nonobstructed. Appendectomy and hysterectomy reported. Small cul-de-sac fluid measuring at least 2.5 x 4.7 x 3 cm presumed postoperative hematoma/seroma. No walled off fluid collection or free air. Gallbladder moderately distended without gallstones or biliary distention. 1.7 cm right mid renal cortical cyst. Remaining liver, gallbladder, pancreas, spleen, adrenal glands, kidneys, ureters, and bladder appear unremarkable. Minimal aortic calcifications. No AAA or pathologic retroperitoneal lymphadenopathy. Osseous structures intact with mild degenerative changes of the lower thoracic spine. Right lower quadrant abdominal wall soft tissue changes and air bubble presumed related to recent laparoscopic surgery. No ventral/inguinal hernias or abnormal abdominal wall fluid collection. Impression: 1. Status post partial hysterectomy. Small pelvic free fluid and right lower quadrant abdominal wall changes as detailed presumed postoperative. No walled off fluid collection or free air. 2. Moderately distended gallbladder without gallstones. Sonogram may yield further information if clinically warranted. 3. Right renal cyst.
--- NOTE | 2020-03-11 09:34 | XRAY ---
Indication: Chest pain. Distended gallbladder on same-day CT. Two-dimensional gallbladder sonogram performed. Comparison: None Pancreas obscured due to overlying bowel gas. Gallbladder normally distended with mild sludge and tiny gallstones in the dependent portion largest 7 mm. No gallbladder wall thickening or pericholecystic fluid. Common bile duct measures 3.6 mm. No intrahepatic biliary distention. Remaining visualized portions of the liver and right pancreas sonographically unremarkable. Right kidney measures 10.3 cm in length. No ascites. Impression: 1. Gallbladder sludge/stones. Negative for cholecystitis or biliary distention. 2. Nonvisualization pancreas.
[2020-03-11 10:07] VITALS: BP 137/90
[2020-03-11 10:57] VITALS: PULSE 87; O2SAT 98
== END 2020-03-11 10:56 | disposition home or self-care (01) ==
LOC: ED 04:55
DX: R07.89 Other chest pain (principal); G89.18 Other acute postprocedural pain; K80.80 Other cholelithiasis without obstruction; I10 Essential (primary) hypertension; Z79.899 Other long term (current) drug therapy; E78.00 Pure hypercholesterolemia, unspecified
CPT/HCPCS: 36000; 36415; 71260; 74177; 76705; 80053; 80185; 83880; 84484; 85025; 85379; 93005; 93041; 96360; 96374; 96375; 99285; J1170; J2405; A9270-GY

== ENCOUNTER 2021-12-01 15:43 | Observation (INO) | payer OTHER ==
--- NOTE | 2021-12-01 16:28 | XRAY ---
Indication: Chest pain. Comparison: March 03, 2020 Portable chest again underinflated and clear. Heart not enlarged. Bony thorax intact. No new/acute findings.
[2021-12-01 16:36] LABS: Absolute Neutrophil Ct (ANC) 4.32 x10^3/uL (1.4-6.9); Basophil (Absolute #) 0.03 x10^3/uL (0-0.4); Eosinophil % 3.7 % (0.00-5.0); Eosinophil (Absolute #) 0.26 x10^3/uL (0-0.5); Hematocrit 40.6 % (35-47); Hemoglobin 13.3 g/dL (12.0-16.0); Lymphocyte (Absolute #) 1.73 x10^3/uL (1.0-4.6); Lymphocytes % 24.4 % (24.0-44.0); Mean Cell Volume 88.8 fL (78-100); Mean Corpuscular Hemoglobin 29.1 pg (26-32); Mean Corpuscular Hgb Concent. 32.8 g/dL (32-36); Mean Platelet Volume 9.9 fL (7.5-11.0); Monocyte (Absolute #) 0.72 x10^3/uL (0.0-1.3); Monocytes % 10.1 % (0.0-12.0); Neutrophil % 60.8 % (36.0-66.0); Platelet Count 297 x10^3/uL (150-450); Red Blood Count 4.57 x10^6/uL (4.1-5.4); Red Cell Distribution Width 12.7 % (11.5-14.0); White Blood Count 7.1 x10^3/uL (4.0-10.5)
[2021-12-01 16:59] LABS: ALKALINE PHOSPHATASE 99 U/L (38-126); ANION GAP 11.1 MEQ/L (5-15); BLOOD UREA NITROGEN 16 mg/dL (7-17); CHLORIDE 103 mmol/L (98-107); Calcium 9.6 mg/dL (8.4-10.2); Carbon Dioxide 29 mmol/L (22-30); Creatinine 1 0.66 mg/dL (0.52-1.04); EST GLOMERULAR FILTRATION RATE > 60.0 ML/MIN; Glucose 216 mg/dL (74-106); NT PRO BNP 26.7 pg/mL (0-900); SGOT/AST 21 U/L (14-36); SGPT/ALT 18 U/L (0-35); SODIUM 139 mmol/L (137-145); Total Protein 7.5 g/dL (6.3-8.2)
--- NOTE | 2021-12-01 17:59 | ERPHSYRPT ---
- History of Present Illness Time Seen by Provider: 12/01/21 15:50 Historian: patient Exam Limitations: no limitations Patient Subjective Stated Complaint: Pt states "I was just standing there and my chest started hurting and it goes into my back." Triage Nursing Assessment: Pt presented alert and oriented X3, skin pwd pt ambulates with an upright steady gait, able to speak in clear full sentences pt in no apaprent respiratory distress. Physician History: Patient is a 56-year-old female presents to emergency department for evaluation of chest pain. Chest pain is substernal. Patient states pain started while she was simply standing. No exertion. Patient radiates to her back. No associated nausea vomiting or diaphoresis. No active chest pain at this time. Symptoms are mild to moderate in intensity. No specific worsening improving factors. Patient denies a history of the same. Patient voices no other complaints or concerns at this time. Portions of this note were created with voice recognition technology. There may be grammatical, spelling, punctuation or sound alike errors Timing/Duration: today Activities at Onset: none Quality: aching Location: substernal Chest Pain Radiation: back Severity of Pain-Max: moderate Severity of Pain-Current: mild Modifying Factors: Improves With: nothing Associated Symptoms: denies symptoms Prior Chest Pain/Cardiac Workup: no prior chest pain Nitro Today/Relief: no nitro taken today Aspirin Treatment Today: no aspirin today Allergies/Adverse Reactions: codeine Allergy (Severe, Verified 03/11/20 05:16) Shortness of Breath levofloxacin Allergy (Verified 03/11/20 05:16) Shortness of Breath naproxen Allergy (Verified 03/11/20 05:16) Shortness of Breath Home Medications: Levetiracetam [Keppra] 1,000 mg PO BID 09/24/18 [History] Phenytoin Sod Extended 100 mg* [Dilantin 100 MG] 100 mg PO TID 09/24/18 [History] Allopurinol 100 mg [Zyloprim 100 mg] 100 mg PO DAILY 01/05/20 [History] Ergocalciferol (Vitamin D2) [Vitamin D2] 1,250 mcg PO WEEKLY 01/05/20 [History] Metoprolol Succinate 25 mg Xl* [Toprol-Xl 25MG Tablets] 25 mg PO DAILY 01/05/20 [History] Levothyroxine Sodium 50 Mcg [Synthroid 50 Mcg] 50 mcg PO DAILY 02/12/20 [History] Atorvastatin Calcium 20 mg PO DAILY 03/11/20 [History] Cyanocobalamin (Vitamin B-12) [Vitamin B12] 1,000 mcg PO DAILY 03/11/20 [History] Meclizine HCl 12.5 mg PO TID PRN PRN 03/11/20 [History] Hx Tetanus, Diphtheria Vaccination/Date Given: Yes Hx Influenza Vaccination/Date Given: No Hx Pneumococcal Vaccination/Date Given: No Immunizations Up to Date: Yes Travel Risk - International Travel Have you traveled outside of the country in past 3 weeks: No - Coronavirus Screening Are you exhibiting any of the following symptoms?: No Close contact with a COVID-19 positive Pt in past 14-21 Days: No - Vaccine Status Have you recieved a Covid-19 vaccination: No - Review of Systems Constitutional: No Symptoms, No Fever, No Chills Eyes: No Symptoms Ears, Nose, & Throat: No Symptoms Respiratory: No Symptoms, No Cough, No Dyspnea Cardiac: No Symptoms, No Chest Pain, No Edema, No Syncope Abdominal/Gastrointestinal: No Symptoms, No Abdominal Pain, No Nausea, No Vomiting, No Diarrhea Genitourinary Symptoms: No Symptoms, No Dysuria Musculoskeletal: No Symptoms, No Back Pain, No Neck Pain Skin: No Symptoms, No Rash Neurological: No Symptoms, No Dizziness, No Focal Weakness, No Sensory Changes Psychological: No Symptoms Endocrine: No Symptoms Hematologic/Lymphatic: No Symptoms Immunological/Allergic: No Symptoms All Other Systems: Reviewed and Negative - Past Medical History Pertinent Past Medical History: Yes Neurological History: Seizures ENT History: No Pertinent History Cardiac History: High Cholesterol, Hypertension, Other Respiratory History: No Pertinent History Endocrine Medical History: Diabetes Type II Musculoskeletal History: No Pertinent History GI Medical History: No Pertinent History History: No Pertinent History Psycho-Social History: Anxiety Female Reproductive Disorders: No Pertinent History Other Medical History: mitral valve prolapse and tachycardia - Past Surgical History Past Surgical History: Yes Neuro Surgical History: No Pertinent History Cardiac: Cardiac Catheterization Respiratory: No Pertinent History Gastrointestinal: Appendectomy Genitourinary: No Pertinent History Musculoskeletal: Orthopedic Surgery, Other Female Surgical History: Hysterectomy, Section Other Surgical History: right forearm surgery ( repair ,hdwe placed and removed all but a few screws" right knee surgery(fx with hdwe placed) C-sectiom x 2 - Social History Smoking Status: Never smoker Exposure to second hand smoke: Yes Drug Use: none Patient Lives Alone: No - Nursing Vital Signs Nursing Vital Signs: Initial Vital Signs Temperature 97.1 F 12/01/21 15:44 Pulse Rate 105 H 12/01/21 15:44 Respiratory Rate 22 12/01/21 15:44 O2 Sat by Pulse Oximetry 98 12/01/21 15:44 Pain Scale Pain Intensity 6 - Physical Exam General Appearance: no apparent distress, alert Eye Exam: PERRL/EOMI, eyes nml inspection Ears, Nose, Throat Exam: normal ENT inspection, TMs normal, pharynx normal, moist mucous membranes Neck Exam: normal inspection, non-tender, supple, full range of motion Respiratory Exam: normal breath sounds, lungs clear, airway intact, No respiratory distress Cardiovascular Exam: regular rate/rhythm, normal heart sounds, normal peripheral pulses Gastrointestinal/Abdomen Exam: soft, normal bowel sounds, No tenderness, No mass Back Exam: normal inspection, No CVA tenderness, No vertebral tenderness Extremity Exam: normal inspection, normal range of motion Neurologic Exam: alert, oriented x 3, cooperative, normal mood/affect, sensation nml, No motor deficits Skin Exam: normal color, warm, dry SpO2 Interpretation: normal SpO2: 98 O2 Delivery: Room Air - Course Nursing assessment & vital signs reviewed: Yes EKG Interpreted by Me: RATE (103), Sinus Tach, NORMAL AXIS, NORMAL INTERVALS - Radiology Exams Chest X-ray Interpretation: Teleradiologist Report (Clear lung xie no acute findings) Ordered Tests: Active Orders 24 hr Category Date Time Status Shipping Lead STAT Care 12/01/21 16:09 Active EKG-ER Only STAT Care 12/01/21 16:08 Active IV Insertion STAT Care 12/01/21 16:08 Active Pulse Oximetry (ED) STAT Care 12/01/21 16:08 Active CHEST 1 VIEW (PORTABLE) Stat Exams 12/01/21 16:09 Completed CBC W DIFF Stat Lab 12/01/21 16:25 Completed CMP Stat Lab 12/01/21 16:25 Completed D-DIMER QUANTITATIVE Stat Lab 12/01/21 16:25 Completed NT PRO BNP Stat Lab 12/01/21 16:25 Completed TROPONIN Q4H Lab 12/01/21 16:25 Completed TROPONIN Q4H Lab 12/01/21 20:15 Ordered TROPONIN Q4H Lab 12/02/21 00:15 Ordered UA W/RFX CULTURE Stat Lab 12/01/21 18:17 Completed Transfer Order Routine Transfer 12/01/21 Ordered Medication Summary Discontinued Medications Generic Name Dose Route Start Last Admin Trade Name Any PRN Reason Stop Dose Admin Aspirin 324 mg 12/01/21 18:06 12/01/21 18:10 Aspirin 81 Mg Tab.Chew PO 12/01/21 18:07 324 mg STAT ONE Administration Lab/Rad Data: Laboratory Result Diagrams 12/01/21 16:25 12/01/21 16:25 Laboratory Results 12/01/21 12/01/21 12/01/21 Range/Units 18:42 18:17 16:25 WBC (4.0-10.5) x10^3/uL RBC (4.1-5.4) x10^6/uL Hgb (12.0-16.0) g/dL Hct (35-47) % MCV (78-100) fL MCH (26-32) pg MCHC (32-36) g/dL RDW (11.5-14.0) % Plt Count (150-450) x10^3/uL MPV (7.5-11.0) fL Gran % (36.0-66.0) % Immature Gran % (Auto) (0.00-0.4) % Nucleat RBC Rel Count (0.00-0.1) % Eos # (Auto) (0-0.5) x10^3/uL Immature Gran # (Auto) (0.00-0.03) x10^3u/L Absolute Lymphs (auto) (1.0-4.6) x10^3/uL Absolute Monos (auto) (0.0-1.3) x10^3/uL Absolute Nucleated RBC (0.00-0.01) x10^3u/L Lymphocytes % (24.0-44.0) % Monocytes % (0.0-12.0) % Eosinophils % (0.00-5.0) % Basophils % (0.0-0.4) % Absolute Granulocytes (1.4-6.9) x10^3/uL Basophils # (0-0.4) x10^3/uL D-Dimer (0.0-0.50) mg/L Sodium (137-145) mmol/L Potassium (3.5-5.1) mmol/L Chloride (98-107) mmol/L Carbon Dioxide (22-30) mmol/L Anion Gap (5-15) MEQ/L BUN (7-17) mg/dL Creatinine (0.52-1.04) mg/dL Estimated GFR ML/MIN Glucose (74-106) mg/dL Calcium (8.4-10.2) mg/dL Total Bilirubin (0.2-1.3) mg/dL AST (14-36) U/L ALT (0-35) U/L Alkaline Phosphatase (38-126) U/L Troponin I < 0.012 (0.000-0.034) ng/mL NT-Pro-B Natriuret Pep (0-900) pg/mL Serum Total Protein (6.3-8.2) g/dL Albumin (3.5-5.0) g/dL Urinalys Dipstick Clnc MAIN LAB Urine Color YELLOW (YELLOW) Urine Appearance CLEAR (CLEAR) Urine pH 6.0 (5-6) Ur Specific [place] >=1.030 (1.005-1.025) POC Urine Protein Conf NEGATIVE (Negative) Urine Ketones NEGATIVE (NEGATIVE) Urine Nitrite NEGATIVE (NEGATIVE) Urine Bilirubin NEGATIVE (NEGATIVE) Urine Urobilinogen 0.2 (0-1) mg/dL Urine Leukocytes TRACE (NEGATIVE) Urine WBC (Auto) 3-5 (0-5) /HPF Urine RBC (Auto) 0-2 (0-2) /HPF U Epithel Cells (Auto) RARE (FEW) /HPF Urine Bacteria (Auto) RARE (NEGATIVE) /HPF Urine RBC NEGATIVE (0-5) Callum/ul Calcium Oxalate Crystal 26-50 (NEGATIVE) /HPF Urine Mucus (Auto) SLIGHT (NEGATIVE) /HPF Ur Culture Indicated? NO Urine Glucose 100 (NEGATIVE) mg/dL Influenza Type A Ag NEGATIVE (NEGATIVE) Influenza Type B Ag NEGATIVE (NEGATIVE) RSV (PCR) NEGATIVE (Negative) SARS-CoV-2 (PCR) POSITIVE A (NEGATIVE) 12/01/21 12/01/21 12/01/21 Range/Units 16:25 16:25 16:25 WBC 7.1 (4.0-10.5) x10^3/uL RBC 4.57 (4.1-5.4) x10^6/uL Hgb 13.3 (12.0-16.0) g/dL Hct 40.6 (35-47) % MCV 88.8 (78-100) fL MCH 29.1 (26-32) pg MCHC 32.8 (32-36) g/dL RDW 12.7 (11.5-14.0) % Plt Count 297 (150-450) x10^3/uL MPV 9.9 (7.5-11.0) fL Gran % 60.8 (36.0-66.0) % Immature Gran % (Auto) 0.6 H (0.00-0.4) % Nucleat RBC Rel Count 0.0 (0.00-0.1) % Eos # (Auto) 0.26 (0-0.5) x10^3/uL Immature Gran # (Auto) 0.04 H (0.00-0.03) x10^3u/L Absolute Lymphs (auto) 1.73 (1.0-4.6) x10^3/uL Absolute Monos (auto) 0.72 (0.0-1.3) x10^3/uL Absolute Nucleated RBC 0.00 (0.00-0.01) x10^3u/L Lymphocytes % 24.4 (24.0-44.0) % Monocytes % 10.1 (0.0-12.0) % Eosinophils % 3.7 (0.00-5.0) % Basophils % 0.4 (0.0-0.4) % Absolute Granulocytes 4.32 (1.4-6.9) x10^3/uL Basophils # 0.03 (0-0.4) x10^3/uL D-Dimer 0.41 (0.0-0.50) mg/L Sodium 139 (137-145) mmol/L Potassium 4.0 (3.5-5.1) mmol/L Chloride 103 (98-107) mmol/L Carbon Dioxide 29 (22-30) mmol/L Anion Gap 11.1 (5-15) MEQ/L BUN 16 (7-17) mg/dL Creatinine 0.66 (0.52-1.04) mg/dL Estimated GFR > 60.0 ML/MIN Glucose 216 H (74-106) mg/dL Calcium 9.6 (8.4-10.2) mg/dL Total Bilirubin 0.40 (0.2-1.3) mg/dL AST 21 (14-36) U/L ALT 18 (0-35) U/L Alkaline Phosphatase 99 (38-126) U/L Troponin I (0.000-0.034) ng/mL NT-Pro-B Natriuret Pep 26.7 (0-900) pg/mL Serum Total Protein 7.5 (6.3-8.2) g/dL Albumin 4.0 (3.5-5.0) g/dL Urinalys Dipstick Clnc Urine Color (YELLOW) Urine Appearance (CLEAR) Urine pH (5-6) Ur Specific [place] (1.005-1.025) POC Urine Protein Conf (Negative) Urine Ketones (NEGATIVE) Urine Nitrite (NEGATIVE) Urine Bilirubin (NEGATIVE) Urine Urobilinogen (0-1) mg/dL Urine Leukocytes (NEGATIVE) Urine WBC (Auto) (0-5) /HPF Urine RBC (Auto) (0-2) /HPF U Epithel Cells (Auto) (FEW) /HPF Urine Bacteria (Auto) (NEGATIVE) /HPF Urine RBC (0-5) Callum/ul Calcium Oxalate Crystal (NEGATIVE) /HPF Urine Mucus (Auto) (NEGATIVE) /HPF Ur Culture Indicated? Urine Glucose (NEGATIVE) mg/dL Influenza Type A Ag (NEGATIVE) Influenza Type B Ag (NEGATIVE) RSV (PCR) (Negative) SARS-CoV-2 (PCR) (NEGATIVE) - Progress Progress: improved Air Movement: good Progress Note: Patient reassessed. Chest pain recurred. Chest x-ray negative. Initial troponin negative. In light of patient's cardiac risk factors history of diabetes and ongoing chest pain we will admit for further evaluation and treatment. COVID test pending 12/01/21 18:09 COVID test positive. Case discussed with Dr. Tovar her on-call physician who excepts admission to observation. Plan of care discussed with patient. She agrees to admission [facility] for further evaluation and treatment. Portions of this note were created with voice recognition technology. There may be grammatical, spelling, punctuation or sound alike errors 12/01/21 19:49 Blood Culture(s) Obtained: No Antibiotics given: No Counseled pt/family regarding: lab results, diagnosis, need for follow-up, rad results - Departure Departure Disposition: Observation Clinical Impression: ACS (acute coronary syndrome) Condition: Stable Critical Care Time: No Referrals: ЮЛИЯ MALDONADO [Primary Care Provider] - Follow up/PCP as directed
[2021-12-01] MEDS ORDERED: BABY ASPIRIN 81 MG CHEW PO ONE (18:06)
[2021-12-01 19:24] LABS: INFLUENZA A NEGATIVE (NEGATIVE); INFLUENZA B NEGATIVE (NEGATIVE); RESPIRATORY SYNCTIAL VIRUS NEGATIVE (Negative)
[2021-12-01 19:27] LABS: SARS-CoV-2 Xpert Express POSITIVE (NEGATIVE)
[2021-12-01 19:28] LABS: Bacteria RARE /HPF (NEGATIVE); Calcium Oxalate Crystals 26-50 /HPF (NEGATIVE); Epithelial Cells RARE /HPF (FEW); Mucus SLIGHT /HPF (NEGATIVE); RBC 0-2 /HPF (0-2)
[2021-12-01 19:29] LABS: Appearance CLEAR (CLEAR); Bilirubin NEGATIVE (NEGATIVE); Dipstick done @ ? MAIN LAB; Glucose 100 mg/dL (NEGATIVE); Ketones NEGATIVE (NEGATIVE); Nitrite NEGATIVE (NEGATIVE); Protein,Urine Dip NEGATIVE (Negative); RBC NEGATIVE Ery/ul (0-5); Specific Gravity >=1.030 (1.005-1.025); Urobilinogen 0.2 mg/dL (0-1)
[2021-12-01 19:30] LABS: Urine Cultured Indicated? NO
[2021-12-01] MEDS ORDERED: NITRO-BID 2% UD PACKETS TOP ONE (19:50)
[2021-12-01] MEDS ORDERED: NITRO-BID 2% UD PACKETS ONE (19:56)
[2021-12-01] MEDS ORDERED: Zofran 4 MG/2 ML VIAL IV PRN (20:36)
[2021-12-01] MEDS ORDERED: MILK OF MAGNESIA 30 ML PO PRN (20:36)
[2021-12-01] MEDS ORDERED: MAALOX ES 30 ML UNIT DOSE PO PRN (20:36)
[2021-12-01] MEDS ORDERED: Senokot-S Tablet PO PRN (20:36)
[2021-12-01] MEDS: TYLENOL 325 MG PO PRN (21:33)
[2021-12-01] MEDS ORDERED: Dilantin 100 MG PO ONE (22:05)
[2021-12-01] MEDS ORDERED: HUMALOG SQ PRN (22:07)
[2021-12-01] MEDS ORDERED: NEURONTIN ONE (22:10)
[2021-12-01] MEDS ORDERED: NEURONTIN PO ONE (22:12)
[2021-12-02 03:17] LABS: Risk Ratio 5.1
[2021-12-02] MEDS: TYLENOL 325 MG PO PRN (06:42)
[2021-12-02 07:59] VITALS: BP 167/89; PULSE 84; O2SAT 93
[2021-12-02] MEDS ORDERED: NEURONTIN PO ONE (22:07)
--- NOTE | 2021-12-12 11:34 | PCM.SSS ---
History of Present Illness - Chief Complaint Chief Complaint: ACS Date: 12/02/21 History of Present Illness: is a 56 year old female. Pt. presented to ER with chest pain, pt. initial work-up was negative for AMI, but with risk factors she was placed in observation for serial troponins. Pt. was screened and found to have asymptomatic COVID of unknown duration. - Review of Systems Constitutional: No Fever, No Chills Eyes: No Symptoms Ears, Nose, & Throat: No Symptoms Respiratory: No Cough, No Short Of Breath Cardiac: Chest Pain, No Edema, No Syncope Abdominal/Gastrointestinal: No Abdominal Pain, No Nausea, No Vomiting, No Diarrhea Genitourinary Symptoms: No Dysuria Musculoskeletal: No Back Pain, No Neck Pain Skin: No Rash Neurological: No Dizziness, No Focal Weakness, No Sensory Changes Psychological: No Symptoms Endocrine: No Symptoms Hematologic/Lymphatic: No Symptoms Immunological/Allergic: No Symptoms Medications & Allergies Home Medications: Home Medication List Levetiracetam [Keppra] 1,000 mg PO BID 09/24/18 [History Confirmed 12/01/21] Phenytoin Sod Extended 100 mg* [Dilantin 100 MG] 100 mg PO TID 09/24/18 [History Confirmed 12/01/21] Allopurinol 100 mg [Zyloprim 100 mg] 100 mg PO DAILY 01/05/20 [History Confirmed 12/01/21] Ergocalciferol (Vitamin D2) [Vitamin D2] 1,250 mcg PO WEEKLY 01/05/20 [History Confirmed 12/01/21] Metoprolol Succinate 25 mg Xl* [Toprol-Xl 25MG Tablets] 25 mg PO DAILY 01/05/20 [History Confirmed 12/01/21] Levothyroxine Sodium 50 Mcg [Synthroid 50 Mcg] 50 mcg PO DAILY 02/12/20 [ History Confirmed 12/01/21] Atorvastatin Calcium 20 mg PO DAILY 03/11/20 [History Confirmed 12/01/21] Cyanocobalamin (Vitamin B-12) [Vitamin B12] 1,000 mcg PO DAILY 03/11/20 [History Confirmed 12/01/21] Meclizine HCl 12.5 mg PO TID PRN PRN 03/11/20 [History Confirmed 12/01/21] Atorvastatin Calcium [Lipitor] 20 mg PO DAILY 30 Days #30 tablet 12/02/21 [Rx] Allergies/Adverse Reactions: Allergies Allergy/AdvReac Type Severity Reaction Status Date / Time codeine Allergy Severe Shortness Verified 03/11/20 05:16 of Breath levofloxacin Allergy Shortness Verified 03/11/20 05:16 of Breath naproxen Allergy Shortness Verified 03/11/20 05:16 of Breath - Past Medical History Past Medical History: Yes Neurological History: Seizures ENT History: No Pertinent History Cardiac History: High Cholesterol, Hypertension, Other Respiratory History: No Pertinent History Endocrine Medical History: Diabetes Type II Musculoskelatal History: No Pertinent History GI Medical History: No Pertinent History History: No Pertinent History Pyscho-Social History: Anxiety Reproductive Disorders: No Pertinent History Comment: mitral valve prolapse and tachycardia - Female History Are you now?: No - Past Surgical History Past Surgical History: Yes Neuro Surgical History: No Pertinent History Cardiac History: Cardiac Catheterization Respiratory Surgery: No Pertinent History GI Surgical History: Cholecystectomy Genitourinary Surgical Hx: No Pertinent History Musculskeletal Surgical Hx: Orthopedic Surgery, Other Female Surgical History: Hysterectomy, Section Other Surgical History: right forearm surgery ( repair ,hdwe placed and removed all but a few screws" right knee surgery(fx with hdwe placed) C-sectiom x 2 - Social History Smoking Status: Never smoker Exposure to second hand smoke: No Alcohol: Rarely Drug Use: none - Physical Exam General Appearance: no apparent distress, alert Neurologic Exam: alert, oriented x 3, cooperative, normal mood/affect, nml c erebellar function, nml station & gait, sensation nml, No motor deficits Eye Exam: PERRL/EOMI, eyes nml inspection Ears, Nose, Throat Exam: normal ENT inspection, TMs normal, pharynx normal, moist mucous membranes Neck Exam: normal inspection, non-tender, supple, full range of motion Respiratory Exam: normal breath sounds, lungs clear, No respiratory distress Cardiovascular Exam: regular rate/rhythm, normal heart sounds, normal peripheral pulses Gastrointestinal/Abdomen Exam: soft, normal bowel sounds, No tenderness, No mass Back Exam: normal inspection, normal range of motion, No CVA tenderness, No vertebral tenderness Extremity Exam: normal inspection, normal range of motion, pelvis stable Skin Exam: normal color, warm, dry, No rash Lymphatic Exam: No adenopathy Assessment/Plan (1) COVID Status: Acute Code(s): U07.1 - COVID-19 (2) Chest pain Status: Acute Code(s): R07.9 - CHEST PAIN, UNSPECIFIED Hospital Summary - Hospital Course Hospital Course: Pt. admitted for chest pain, cardiac markers were negative on further tests. Pt. had no further chest pain, treatment for unknown duration assymptomatic covid was not initiated, pt. was stable for discharge the following morning with op evaluation from cardiac standpoint advised. - Vitals & Intake/Output Vital Signs: Vital Signs Temperature 98.4 F 12/02/21 07:58 Pulse Rate 84 12/02/21 07:58 Respiratory Rate 20 12/02/21 07:58 Blood Pressure 167/89 12/02/21 07:58 O2 Sat by Pulse Oximetry 93 L 12/02/21 07:58 - Lab Result Diagrams: 12/01/21 16:25 12/01/21 16:25 - Procedures and Test Procedures and Tests throughout Hospitalization: Therapy Orders & Screens 12/01/21 20:36 EKG Q8HX2,QAMX3,PRN Comment: 12/02/21 05:00 EKG DAILY Comment: Diagnosis: ACS 12/03/21 05:00 EKG DAILY Comment: Diagnosis: ACS 12/04/21 05:00 EKG DAILY Comment: Diagnosis: ACS 12/05/21 05:00 EKG DAILY Comment: Diagnosis: ACS - Discharge Discharge Date: 12/02/21 Disposition: Home, Self-Care Condition: Stable Prescriptions: New Atorvastatin Calcium [Lipitor] 20 mg PO DAILY 30 Days #30 tablet Continue Phenytoin Sod Extended 100 mg* [Dilantin 100 MG] 100 mg PO TID Levetiracetam [Keppra] 1,000 mg PO BID Ergocalciferol (Vitamin D2) [Vitamin D2] 1,250 mcg PO WEEKLY Allopurinol 100 mg [Zyloprim 100 mg] 100 mg PO DAILY Metoprolol Succinate 25 mg Xl* [Toprol-Xl 25MG Tablets] 25 mg PO DAILY Levothyroxine Sodium 50 Mcg [Synthroid 50 Mcg] 50 mcg PO DAILY Meclizine HCl 12.5 mg PO TID PRN PRN PRN Reason: Dizziness Cyanocobalamin (Vitamin B-12) [Vitamin B12] 1,000 mcg PO DAILY Atorvastatin Calcium 20 mg PO DAILY Instructions: COVID-19 (DC) Additional Instructions: Follow up with your primary care physician Last day of quarantine 12/06/21 Follow up with: ROBSON LIVE [CONSULTING PHYSICIAN] - 12/07/21 2:00 pm Forms: Discharge Instructions
== END 2021-12-02 10:53 | disposition home or self-care (01) ==
LOC: ED 15:43 → MED SURG 20:30
PROVIDERS: ADMIT Family Medicine; ATTEND Family Medicine
DX: U07.1 COVID-19 (principal); R07.9 Chest pain, unspecified; E11.9 Type 2 diabetes mellitus without complications; E78.00 Pure hypercholesterolemia, unspecified; I10 Essential (primary) hypertension; Z79.899 Other long term (current) drug therapy; Z20.828 Contact with and (suspected) exposure to other viral communicable diseases
CPT/HCPCS: 0241U; 36000; 36415; 71045; 80053; 80061; 81015; 82947; 83721; 83880; 84484; 85025; 85379; 93005; 93041; 93268; 94760; 99285; G0378; A9270-GY